=== PATIENT | female | born 1995 | race Caucasian/White ===

== ENCOUNTER 2023-06-22 20:55 | Outpatient (REF) | payer BC, SELFPAY ==
[2023-06-30 09:07] LABS: Age Gdln ACOG Testing Note (.); IGP, rfx Aptima HPV ASCU Note (.)
== END 2023-06-22 20:56 | disposition home or self-care (01) ==
LOC: LAB 20:55
PROVIDERS: PCP Nurse Practitioner Family; Visit Provider Physician Assistant
DX: Z12.4 Encounter for screening for malignant neoplasm of cervix (principal)
CPT/HCPCS: G0145

== ENCOUNTER 2024-04-29 12:53 | Outpatient (OUT) | payer BC, SELFPAY ==
--- NOTE | 2024-04-29 13:00 | CA_ITS ---
Patient Name: CECILE ROBLES MR#: [id number] : 1995 Exam Date: 04/29/2024 Ordering Doctor: DR CHRISTI EASTMAN M.D. ECHOCARDIOGRAM REPORT PROCEDURE: CA ECHO DOPPLER COMPLETE INDICATIONS: Edema, ventricular septal defect COMPARISON: None. DESCRIPTION: COMPLETE ECHOCARDIOGRAM Real-time transthoracic echocardiography with 2D, M-mode, spectral and color flow Doppler performed. QUALITY: Technical quality was good. LEFT VENTRICLE: Normal chamber size. Normal left ventricular wall thickness. Normal systolic function. Perimembranous ventricular septal defect (0.4 cm) with left to right shunting. There is inability to assess the peak velocity across the ventricular septal defect due to incomplete Doppler envelope. LV EF: Normal left ventricular ejection fraction, (60-65%). DIASTOLIC: Normal diastolic function. ATRIAL SEPTUM: LEFT ATRIUM: Normal chamber size. RIGHT ATRIUM: Normal chamber size. RIGHT VENTRICLE: Normal chamber size. Normal right ventricular systolic function. TRICUSPID VALVE: Normal mobility and thickness. No stenosis with no regurgitation. Unable to assess right-sided pressures due to lack of measurable tricuspid regurgitation. MITRAL VALVE: Normal mobility and thickness. No evidence of mitral valve stenosis. There is no mitral annular calcification. Trivial mitral regurgitation. AORTIC VALVE: Normal trileaflet appearance. No visible sclerosis. Normal leaflet mobility. No evidence of aortic valve stenosis. No aortic regurgitation. AORTIC ROOT: Normal diameter and appearance. PULMONIC VALVE: Normal thickness and mobility. No stenosis. Trivial regurgitation. PERICARDIUM: No evidence of pericardial effusion. IVC: Not well visualized. PLEURA: CONCLUSION: 1. Normal left ventricular size and systolic function. LVEF is estimated at 60 to 65%. 2. Normal right ventricular size and systolic function. 3. No significant valvular dysfunction. 4. Normal diastolic function. 5. A small restrictive perimembranous ventricular septal defect is seen with [id number] shunting across it. Unable to assess the peak velocity across the VSD due to incomplete Doppler envelope. 6. No pericardial effusion. Adult Echocardiography Procedure Report Left Ventricle LVEDD (3.7 - 5.6 cm): 4.26 cm LVESD (2.2 - 4.0 cm): 2.85 cm LVIVS thickness (0.6 - 1.2 cm): 0.85 cm LVPW thickness (0.5 - 1.0 cm): 1.04 cm e': 0.15 m/s E - e': 4.71 LVOT Max Gradient: 1.77 mm[Hg], 1.69 mm[Hg] Peak Velocity (LVOT): 0.67 m/s, 0.65 m/s LVOT Diameter 1.82 cm Left Atrium LA Volume Index (2D A2C): 21.88 ml/m2 Left Atrium Systolic Dimension: 2.51 cm Mitral Valve MV E to A Ratio: 1.22 Mitral Valve A-Wave Peak Velocity: 0.58 m/s Mitral Valve E-Wave Peak Velocity: 0.70 m/s Right Ventricle Aorta AO Root Diam: 2.73 cm Aortic Valve AoV Area (Peak Adama): 1.37 cm2, 1.37 cm2 AoV Area (VTI): 1.43 cm2, 1.43 cm2 Peak Velocity(Antegrade Flow): 1.27 m/s Peak Gradient(Antegrade Flow): 6.41 mm[Hg] Mean Velocity(Antegrade Flow): 0.89 m/s Mean Gradient(Antegrade Flow): 3.55 mm[Hg] Velocity Time Integral: 25.48 cm Tricuspid Valve Pulmonic Valve Mean Gradient: 3.72 mm[Hg] Mean Velocity: 0.87 m/s Peak Velocity: 1.45 m/s, 1.06 m/s Peak Gradient: 4.51 mm[Hg], 8.41 mm[Hg] Right Atrium Right Atrium Systolic Pressure: 25.02 ml, 25.02 ml Dictated by: Dominic Levy M.D. on 04/29/2024 at 20:23 Approved by: Dominic Levy M.D. on 04/29/2024 at 20:30
== END 2024-04-29 12:54 | disposition home or self-care (01) ==
LOC: CARD 12:53
PROVIDERS: Visit Provider Internal Medicine Interventional Cardiology
DX: R60.9 Edema, unspecified (principal); R68.89 Other general symptoms and signs
CPT/HCPCS: 93306

== ENCOUNTER 2024-10-17 21:15 | Outpatient (REF) | payer BC, SELFPAY ==
--- OUTSIDE RECORDS SUMMARY | 2024-10-17 21:18 | XMS_ITS | CCD ---
Author Organization [facility] CliniSyne Care Team Providers Care As400 Operator Name Role Phone PHYSICIAN, DEFAULT Unavailable Unavailable PHYSICIAN, DEFAULT Unavailable Unavailable NANCY WILLSON Unavailable Unavailable ELTAHAWY, EHAB A Unavailable Unavailable ELTAHAWY, EHAB A Unavailable Unavailable NAVRATIL, ANDREW Unavailable Unavailable NAVRATIL, ANDREW Unavailable Unavailable Linda Costellofer Unavailable Kapamerico Brittani Unavailable Linda Costellofer Unavailable RADHA Costello Primary Care Provider Kapamerico, RADHA Peter Attending Provider Trang, RADHA Peter Primary Care Provider Trang, RADHA Peter Attending Provider MELQUIADESC, DR COOMBS Primary Care Unavailable NAPOLEON, YOLIS Admitting Unavailable NAPOLEON, YOLIS Attending Unavailable BRITTANI COSTELLO Primary Care Unavailable ELTAHAWDmitri, DR BARRAZA Admitting Unavailable ELTAHAWDmitri, DR BARRAZA Consulting Unavailable ELTAMAKAYLA, DR BARRAZA Attending Unavailable PEGGY ., DR GALEANA Attending Unavailable MISC, DR COOMBS Primary Care Unavailable PEGGY ., DR GALEANA Admitting Unavailable PEGGY ., DR GALEANA Consulting Unavailable Brittani Costello Primary Care Unavailable Brittani Costello Attending Unavailable Kapamerico Brittani Admitting Unavailable KapLinda driscollfer Attending Unavailable [place] Brittani Admitting Unavailable KapBrittani driscoll Primary Care Unavailable ELTAHAWY, SHIVAMAB Attending Unavailable AUREA JOHNSON, EL GRAVES Attending Isidro VILLAR MD, EL GRAVES Primary Care Isidro VILLAR MD, EL GRAVES Primary Care MELVI Broussard MD Attending Edith VILLAR MD, EL GRAVES Referring Isidro VILLAR MD, EL GRAVES Primary Care EL Lindsay Attending Rolf VILLAR, EL GRAVES Referring Unavaila EL Otoole Primary Care Unavaila ble MELVI BRUNNER Attending MELVI Chester Referring Unavailable EL VILLAR Primary Care Unavaila rickey BRUNNER, MELVI Attending Unavailable MELVI BRUNNER Referring Unavailable EL VILLAR Primary Care Unavaila EL Otoole Primary Care Unavaila ble EL VILLAR Primary Care Unavaila rickey Walker MD, Allie Shane Primary Care Provider [phone] Allergies Allergy Classification Reported Allergen(s) Allergy Type Date of Onset Reaction(s) Facility (5 sources) azithromycin; Translations: [AZITHROMYCIN] Drug Allergy 9 Hives [facility] Repository (18 sources) Azithromycin Drug Allergy 4 hives, Other, Unknown [facility] (2 sources) Azithromycin Drug Allergy 9 [facility] Repository (1 source) Nitrofurantoin Drug Allergy [facility] Repository (1 source) Azithromycin Drug Allergy 1 [facility] Repository Medications Current Medications Medication Drug Class(es) Dates Sig (Normalized) Sig (Original) [id number] 200 actuat albuterol 0.09 mg/actuat metered dose inhaler (12 sources) beta2-Adrenergic Agonist Start: 11-25-2021 take 2 puff(s) by inhalation every four hours as needed for cough ProAir HFA 108 (90 Base) MCG/ACT 2 puffs as needed Inhalation every 4 hrs prn cough/wheezing/sh ortness of breath for 30 days Oct, Active take 1 puff(s) by in halation every four hours as needed Ventolin HFA 108 (90 Base) MCG/ACT 1 puf f as needed Inhalation every 4 hrs for 90 days prn Active ethinyl estradiol 0.035 mg / norgestimate 0.25 mg oral tablet (16 sources) Progestin, Estrogen Start: 07-22-2024 take 1 tablet by mouth once daily Sprintec 28 0.25-35 MG-MCG tablet Indications: control counseling TAKE 1 TABLET BY MOUTH DAILY 84 tablet 3 07/22/2024 Active take 1 tablet by gurpreet th every twenty-four hours Ginger 0.25-35 MG-MCG 1 tablet Orally Once a day Active take 1 tablet by gurpreet th every twenty-four hours VyLibra 0.25-35 MG-MCG 1 tablet Orally Once a day Active 30 actuat fluticasone furoate 0.2 mg/actuat / vilanterol 0.025 mg/actuat dry powder inhaler (6 sources) Corticosteroid, beta2-Adrenergic Agonist Start: 12-10-2020 take 1 puff(s) by inhalation once daily Breo Ellipta 200-25 MCG/INH 1 puff Inhalation Once a day for 30 days Nov, Active loratadine 10 mg oral tablet (15 sources) take 1 tablet by mouth once daily Loratadine 10 MG 1 tablet Orally Once a day Active montelukast 10 mg oral tablet (15 sources) Leukotriene Receptor Antagonist take 1 tablet by mouth every twenty-four hours Singulair 10 MG 1 tablet Orally Once a day for 90 days Active Multiple Vitamin (multivitamin) tablet (2 sources) take 1 tablet by mouth once daily Multiple Vitamin (multivitamin) tablet Take 1 tablet by mouth Daily Active Multivitamin preparation (15 sources) Multivitamin Active permethrin 50 mg/ml topical cream (6 sources) Pyrethroid Start: 09-04-2021 Permethrin 5 % 1 application; Apply from neck down to soles of feet, wash off after 8-14 hours Externally Once for 1 days Aug, Active ProAir HFA 108 (90 Base) MCG/ACT (3 sources) Start: 11-25-2021 take 2 puff(s) by inhalation every four hours as needed for cough ProAir HFA 108 (90 Base) MCG/ACT 2 puffs as needed Inhalation every 4 hrs prn cough/wheezing/sh ortness of breath for 30 days Oct, Active Zinc Sulfate (2 sources) Zinc Sulfate (ZINC 15 PO) Take by mouth Active Completed/Discontinued Medications Medication Drug Class(es) Dates Sig (Normalized) Sig (Original) 120 actuat budesonide 0.08 mg/actuat / formoterol fumarate 0.0045 mg/actuat metered dose inhaler (9 sources) Corticosteroid, beta2-Adrenergic Agonist Start: 12-12-2021 take 2 puff(s) by inhalation twice daily Budesonide-Formot donald Fumarate 80-4.5 MCG/ACT 2 puffs Inhalation Twice a day for 30 days Nov, Not-Taking Start: 11-26-2021 take 2 puff(s) by in halation once daily Symbicort 80-4.5 MCG/ACT 2 puffs Inhalation Once a day for 30 days Nov, Active Problems Active Problems Problem Classification Problem Date Documented Date Episodic/Chronic Asthma (20 sources) Unspecified asthma, uncomplicated; Translations: [Uncomplicated moderate persistent asthma] Onset: 04-20-2018 Resolved: 06-16-2022 Chronic Cardiac and circulatory congenital anomalies (20 sources) Ventricular septal defect; Translations: [Ventricular septal defect] Onset: 04-20-2018 Resolved: 06-16-2022 Chronic Contraceptive and procreative management (4 sources) Patient encounter status; Translations: [Encounter for other general counseling and advice on contraception] Onset: 10-17-2024 10-17-2024 Episodic Other diseases of veins and lymphatics (4 sources) Lymphedema, not elsewhere classified; Translations: [Lymphedema, not elsewhere classified] Onset: 05-23-2024 Chronic Other lower respiratory disease (1 source) Dyspnea, unspecified; Translations: [DYSPNEA, UNSPECIFIED] Onset: 04-20-2018 Episodic Other screening for suspected conditions (not mental disorders or infectious disease) (18 sources) Elevated C-reactive protein; Translations: [Elevated C-reactive protein (CRP)] Onset: 12-16-2021 Resolved: 06-16-2022 Episodic Unclassified (2 sources) Unknown / UNK(Unknown) Onset: 04-20-2018 Unclassified (1 source) Encounter for general adult medical examination without abnormal findings; Translations: [Encounter for general adult medical examination without abnormal findings] Onset: 06-22-2023 Unclassified (2 sources) Encounter for general adult medical examination without abnormal findings Onset: 02-12-2024 Unclassified (1 source) Streptococcal pharyngitis Onset: 04-27-2024 Unclassified (2 sources) Contact with and (suspected) exposure to covid-19; Translations: [Contact with and (suspected) exposure to covid-19] Onset: 04-27-2024 Past or Other Problems Problem Classification Problem Date Documented Date Episodic/Chronic E Codes: Natural/environment (1 source) Bitten or stung by nonvenomous insect and other nonvenomous arthropods, initial encounter Onset: 09-04-2021 Resolved: 09-04-2021 Episodic Immunizations and screening for infectious disease (1 source) Encounter for screening for human papillomavirus (HPV); Translations: [ENC SCREENING HUMAN PAPILLOMAVIRUS] Onset: 06-17-2022 Episodic Other connective tissue disease (1 source) Other specified soft tissue disorders; Translations: [Swelling of right foot M79.89] Onset: 08-12-2021 Resolved: 08-12-2021 Episodic Other injuries and conditions due to external causes (2 sources) Unspecified injury of right foot, initial encounter Onset: 06-16-2022 Resolved: 06-24-2022 Episodic Other skin disorders (1 source) Rash and other nonspecific skin eruption Onset: 09-04-2021 Resolved: 09-04-2021 Episodic Other upper respiratory infections (1 source) Streptococcal pharyngitis; Translations: [Streptococcal pharyngitis] Onset: 04-27-2024 Episodic Residual codes; unclassified (4 sources) Localized edema; Translations: [Localized edema] Onset: 02-12-2024 Episodic Residual codes; unclassified (2 sources) Localized edema Onset: 02-12-2024 Episodic Viral infection (2 sources) Plantar wart; Translations: [Plantar wart] Onset: 02-12-2024 Episodic Results Test Name Value Interpretation Reference Range Facility VL LOWER EXTREM VENOUS DUPLE X BILATon 07-11-2024 VL LOWER EXTREM VENOUS DUPLEX BILAT VL LOWER EXTREM VENOUS DUPLEX BILAT [facility] [address] [place] [address] Lower Extremity Venous Duplex Report Name: JOE FLORES : 1995 Age: 29 yrs EPI: [id number] Gender: Female Accession Number: [id number] Order Number: [id number] Patient Location: [facility] Study Date: 07/11/2024 02:22 PM Procedure: 53439 Bilateral lower extremity venous study. Study was performed as an outpatient. Indication: Bilateral lower extremity edema [R60.0 (ICD-10-CM)]; Chronic acquired lymphedema [I89.0 (ICD-10-CM)]. Quality: Adequate. Study Description: Veins of the bilateral lower extremity were evaluated including the common femoral, femoral, deep femoral, popliteal, tibial, peroneals, and saphenous veins. Right Lower Extremity Venous Findings: There is no evidence of acute deep or superficial venous thrombosis identified in the right lower extremity. Left Lower Extremity Venous Findings: There is no evidence of acute deep or superficial venous thrombosis identified in the left lower extremity. Patient Disposition: The patient was discharged. Impression: o Normal venous evaluation, no evidence of acute superficial or deep venous thrombosis in the bilateral lower extremities. Ordering Physician: MELVI BRUNNER Referring Physician: MELVI BRUNNER Performed By: ARNEL Mabry, Sohan This document is confidential medical information. Unauthorized disclosure or use of this information is prohibited by law. If you are not the intended recipient of this document,please advise us by calling immediately . [facility] CT ABDOMEN PELVIS W CONTRAST on 07-08-2024 CT ABDOMEN PELVIS W CONTRAST CT ABDOMEN PELVIS W CONTRAST [phone] HISTORY: lower ext. swelling, R>>L lower ext. swelling, R>>L, Bilateral lower extremity edema, Chronic acquired lymphedema Localized edema;Lymphedema, not elsewhere classified COMPARISON: None TECHNIQUE: Post IV contrast multiplanar CT images of the abdomen and pelvis NOTE: If there are questions about the content of this report, please contact [facility] radiology by calling [phone] FINDINGS: LOWER CHEST: Unremarkable LIVER: Unremarkable GALLBLADDER/BILE DUCTS: Unremarkable. No opaque gallstones PANCREAS: Unremarkable. No mass or duct dilation SPLEEN: Unremarkable ADRENALS: Unremarkable KIDNEYS/URETERS: Unremarkable. No hydronephrosis, stone, or suspicious mass GI TRACT: Unremarkable. No obstruction, wall thickening, or pneumatosis. Normal appendix VESSELS: Unremarkable. No aneurysm or dissection LYMPH NODES: Unremarkable. No enlarged lymph nodes ABD WALL: Unremarkable PELVIS: Unremarkable BONES: Unremarkable OTHER: None IMPRESSION: Unremarkable abdomen/pelvis CT. SIGNED BY: Oscar Andrade MD on 07/08/2024 11:56 AM 157.5 68.04 [facility] Imaging Report - Main Call Center - [facility] Call Center: Normal [facility] Telemedicineon 03-22-2024 Telemedicine [id number] Baljeet Flores holley Pérez 1995 F Date Provider Department Center 03/22/2024 271-LAVELL JAMES [facility] No family history on file Level of Service:95510 NM OFFICE/OUTPATIENT ESTABLISHED MOD MDM 30 MIN Normal [facility] HEMOGLOBIN A1Con 02-13-2024 Glucose [Mass/Vol] 94 mg/dL Normal [facility] Comment on above: Result Comment: (NOT E) REFERENCE RANGE: Normal: 4.0-5.6% Pre-diabetes: 5.7-6.4% Provisional diagnosis of diabetes: >6.4% Hgb F>10% and anything which shortens red cell survival, such as hemolytic anemia, or unstable hemoglobin variants such as HbSS, HbSC, or HbCC, will lower the HbA1c value associated with a given level of glycemic control. Performed By: #### H BA1C #### Adilene Cervantes ([id number]) [facility] [address] [place] [address] HbA1c (Bld) [Mass fraction] 4.9 % Normal 4.2-5.6 [facility] Comment on above: Performed By: #### H BA1C #### Adilene Cervantes ([id number]) [facility] [address] [place] [address] MICROALBUMIN/CREAT Feroz 02-12 CREATININE,URINE RANDOM 92.4 mg/dL Normal [facility] Comment on above: Performed By: #### U MAR #### Adilene Cervantes ([id number]) [facility] [address] [place] [address] MICROALB/CREAT RATIO See Comment Normal [facility] Comment on above: Result Comment: (NOT E) Because the albumin level is below the level of detection in this urine specimen, the laboratory is unable to calculate a reliable albumin/creatinine ratio. Microalbuminuria is unlikely if the urine albumin concentration is less than 20-30 mg/L in a random specimen. Performed By: #### U MAR #### Adilene Cervantes ([id number]) [facility] [address] [place] [address] MICROALBUMIN, UR <12.0 Normal [facility] Comment on above: Performed By: #### U MAR #### Adilene Cervantes ([id number]) [facility] [address] [place] [address] TSH REFLEX TO FT4on 02-13-20 TSH Qn 0.842 m[IU]/L Normal 0.270-4.20 0 [facility] Comment on above: Result Comment: (NOT E) Ingestion of javier doses of biotin (>5 mg/day) taken within 8 hours of drawing blood sample can interfere with this immunoassay test. Performed By: #### T SHR #### Adilene Cervantes ([id number]) [facility] [address] [place] [address] CBC W/O DIFFon 02-12-2024 Erythrocyte distribution width (RBC) [Ratio] 12.2 % Low 12.3-17.0 [facility] Comment on above: Performed By: #### C BC #### Adilene Cervantes ([id number]) [facility] [address] [place] [address] Hematocrit (Bld) [Volume fraction] 42.0 % Normal 36-46 [facility] Comment on above: Performed By: #### C BC #### Adilene Cervantes ([id number]) [facility] [address] [place] [address] Hemoglobin (Bld) [Mass/Vol] 14.5 g/dL Normal 12.0-15.2 [facility] Comment on above: Performed By: #### C BC #### Adilene Cervantes ([id number]) [facility] [address] [place] [address] MCH (RBC) [Entitic mass] 30.2 pg Normal 27-33 [facility] Comment on above: Performed By: #### C BC #### Adilene Cervantes ([id number]) [facility] [address] [place] [address] MCHC (RBC) [Mass/Vol] 34.4 g/dL Normal 32-36 [facility] Comment on above: Performed By: #### C BC #### Adilene Cervantes ([id number]) [facility] [address] [place] [address] MCV (RBC) [Entitic vol] 87.9 fL Normal 82-97 [facility] Comment on above: Performed By: #### C BC #### Adilene Cervantes ([id number]) [facility] [address] [place] [address] PLATELET 289 THOU/mcL Normal 140-375 [facility] Comment on above: Performed By: #### C BC #### Adilene Cervantes ([id number]) [facility] [address] [place] [address] Platelet mean volume (Bld) [Entitic vol] 8.2 fL Normal 7.4-11.5 [facility] Comment on above: Performed By: #### C BC #### Adilene Cervantes ([id number]) [facility] [address] [place] [address] RBC 4.78 MIL/mcL Normal 3.80-5.20 [facility] Comment on above: Performed By: #### C BC #### Adilene Cervantes ([id number]) [facility] [address] [place] [address] WBC 7.8 THOU/mcL Normal 3.6-10.5 [facility] Comment on above: Performed By: #### C BC #### Adilene Cervantes ([id number]) [facility] [address] [place] [address] LIPID PANELon 02-12-2024 Cholesterol [Mass/Vol] 191 mg/dL Normal <200 [facility] Comment on above: Performed By: #### L IPID #### Adilene Cervantes ([id number]) [facility] [address] [place] [address] Cholesterol in HDL [Mass/Vol] 64 mg/dL Normal >50 [facility] Comment on above: Performed By: #### L IPID #### Adilene Cervantes ([id number]) [facility] [address] [place] [address] Cholesterol in LDL [Mass/Vol] 81 mg/dL Normal <130 [facility] Comment on above: Result Comment: Inte rpretive Guidelines: <100 Optimal 100-129 Near Optimal 130-159 Borderline High >159 High Performed By: #### L IPID #### Adilene Cervantes ([id number]) [facility] [address] [place] [address] NON-HDL CHOLESTEROL 127 mg/dL Normal <130 [facility] Comment on above: Result Comment: Test ed at [facility] [address] [facility] [address] Performed By: #### L IPID #### Adilene Cervantes ([id number]) [facility] [address] [place] [address] Triglyceride [Mass/Vol] 228 mg/dL High <150 [facility] Comment on above: Result Comment: Refe rence Interval: Fasting <150 mg/dL Non-Fasting <175 mg/dL Performed By: #### L IPID #### Adilene Cervantes ([id number]) [facility] [address] [place] [address] METABOLIC PANEL, COMPREHENSI VEon 02-12-2024 Albumin [Mass/Vol] 4.6 g/dL Normal 3.5-5.7 [facility] Comment on above: Performed By: #### C MPC #### Adilene Cervantes ([id number]) [facility] [address] [place] [address] ALP [Catalytic activity/Vol] 66 U/L Normal 35-135 [facility] Comment on above: Performed By: #### C MPC #### Adilene Cervantes ([id number]) [facility] [address] [place] [address] ALT [Catalytic activity/Vol] 23 U/L Normal 10-60 [facility] Comment on above: Performed By: #### C MPC #### Adilene Cervantes ([id number]) [facility] [address] [place] [address] Anion gap [Moles/Vol] 8 mmol/L Normal 4-16 [facility] Comment on above: Result Comment: Test ed at [facility] [address] [facility] [address] Performed By: #### C MPC #### Adilene Cervantes ([id number]) [facility] [address] [place] [address] AST [Catalytic activity/Vol] 18 U/L Normal 10-40 [facility] Comment on above: Performed By: #### C MPC #### Adilene Cervantes ([id number]) [facility] [address] [place] [address] Bilirubin [Mass/Vol] 0.3 mg/dL Normal 0.0-1.2 [facility] Comment on above: Performed By: #### C MPC #### Adilene Cervantes ([id number]) [facility] [address] [place] [address] Calcium [Mass/Vol] 9.7 mg/dL Normal 8.5-10.4 [facility] Comment on above: Performed By: #### C MPC #### Adilene Cervantes ([id number]) [facility] [address] [place] [address] Chloride [Moles/Vol] 105 mmol/L Normal 98-111 [facility] Comment on above: Performed By: #### C MPC #### Adilene Cervantes ([id number]) [facility] [address] [place] [address] CO2 [Moles/Vol] 28 mmol/L Normal 21-31 [facility] Comment on above: Performed By: #### C MPC #### Adilene Cervantes ([id number]) [facility] [address] [place] [address] Creatinine [Mass/Vol] 0.74 mg/dL Normal 0.60-1.20 [facility] Comment on above: Performed By: #### C MPC #### Adilene Cervantes ([id number]) [facility] [address] [place] [address] ESTIMATED GFR 113 mL/min/1.73 m2 Normal >59 [facility] Comment on above: Result Comment: Natalie mated GFR was calculated using the CKD-EPI cr (2020) equation refit without race. The equation is recommended by the National Kid[employer] - [place] [employer] Neph[employer] Task Force. Performed By: #### C MPC #### Adilene Cervantes ([id number]) [facility] [address] [place] [address] Glucose [Mass/Vol] 94 mg/dL Normal 70-99 [facility] Comment on above: Performed By: #### C MPC #### Adilene Cervantes ([id number]) [facility] [address] [place] [address] Potassium [Moles/Vol] 3.9 mmol/L Normal 3.6-5.1 [facility] Comment on above: Performed By: #### C MPC #### Adilene Cervantes ([id number]) [facility] [address] [place] [address] Protein [Mass/Vol] 7.1 g/dL Normal 6.0-8.0 [facility] Comment on above: Performed By: #### C MPC #### Adilene Cervantes ([id number]) [facility] [address] [place] [address] Sodium [Moles/Vol] 141 mmol/L Normal 135-145 [facility] Comment on above: Performed By: #### C MPC #### Adilene Cervantes ([id number]) [facility] [address] [place] [address] Urea nitrogen [Mass/Vol] 13 mg/dL Normal 8- [facility] Comment on above: Performed By: #### C MPC #### Adilene Cervantes ([id number]) [facility] [address] [place] [address] URINALYSIS, COMPLETEon 02-11 Appearance (U) TURBID Abnormal Clear [facility] Comment on above: Performed By: #### U A #### Adilene Cervantes ([id number]) [facility] [address] [place] [address] BACTERIA SEE NOTES Abnormal NONE [facility] Comment on above: Result Comment: FEW Performed By: #### U A #### Adilene Cervantes ([id number]) [facility] [address] [place] [address] BILIRUBIN,URINE Negative Normal NEGATIVE [facility] Comment on above: Performed By: #### U A #### Adilene Cervantes ([id number]) [facility] [address] [place] [address] BLOOD, URINE 1+ (0.06-0.1 mg/dL) Abnormal NEGATIVE [facility] Comment on above: Performed By: #### U A #### Adilene Cervantes ([id number]) [facility] [address] [place] [address] Color (U) LIGHT BROWN Abnormal Yellow [facility] Comment on above: Performed By: #### U A #### Adilene Cervantes ([id number]) [facility] [address] [place] [address] Glucose Ql (U) Negative Normal NEGATIVE [facility] Comment on above: Performed By: #### U A #### Adilene Cervantes ([id number]) [facility] [address] [place] [address] Ketones Ql (U) Negative Normal NEGATIVE [facility] Comment on above: Performed By: #### U A #### Adilene Cervantes ([id number]) [facility] [address] [place] [address] Leukocyte esterase Test strip Ql (U) Negative Normal NEGATIVE [facility] Comment on above: Performed By: #### U A #### Adilene Cervantes ([id number]) [facility] [address] [place] [address] Nitrite Ql (U) Negative Normal NEGATIVE [facility] Comment on above: Performed By: #### U A #### Adilene Cervantes ([id number]) [facility] [address] [place] [address] pH (U) 7.0 [pH] Normal 5.0-8.0 [facility] Comment on above: Performed By: #### U A #### Adilene Cervantes ([id number]) [facility] [address] [place] [address] PROTEIN URIN Trace (10-20 mg/dL) Abnormal NEGATIVE [facility] Comment on above: Performed By: #### U A #### Adilene Cervantes ([id number]) [facility] [address] [place] [address] RBC (U) [#/Vol] /uL Normal <6 [facility] Comment on above: Result Comment: 0 to 2 Performed By: #### U A #### Adilene Cervantes ([id number]) [facility] [address] [place] [address] SPEC.GRAVITY,URINE 1.021 Normal 1.005-1.0 2 9 [facility] Comment on above: Performed By: #### U A #### Adilene Cervantes ([id number]) [facility] [address] [place] [address] UROBILINOGEN NORMAL Normal NORMAL [facility] Comment on above: Performed By: #### U A #### Adilene Cervantes ([id number]) [facility] [address] [place] [address] WBC 11 to 20 Abnormal <6 [facility] Comment on above: Performed By: #### U A #### Adilene Cervantes ([id number]) [facility] [address] [place] [address] WBC CLUMPS PRESENT Normal [facility] Comment on above: Performed By: #### U A #### Adilene Cervantes ([id number]) [facility] [address] [place] [address] YEAST PRESENT Normal [facility] Comment on above: Result Comment: Test ed at [facility] [address] [facility] [address] Performed By: #### U A #### Adilene Cervantes ([id number]) [facility] [address] [place] [address] SPECIMEN SOURCE Urine, Clean Catch Normal T [facility] Comment on above: Performed By: #### U A #### Adilene Cervantes ([id number]) [facility] [address] [place] [address] URINE TYPE Urine Normal [facility] Comment on above: Performed By: #### U A #### Adilene Cervantes ([id number]) [facility] [address] [place] [address] CMP with reflex to A1Con Albumin [Mass/Vol] 4.5 g/dL Normal 3.5-5.[address] [facility] Comment on above: Order Comment: Reaso n for Exam Well adult exam Performed By: #### L IPID, TSH3, CBC, [id number], [id number], HSCRP, CMP wRFX A1C, FE PRO #### [facility] [address] [place] [id number] [place] Albumin/Globulin [Mass ratio] 1.7 {ratio} Normal [facility] Comment on above: Order Comment: Reaso n for Exam Well adult exam Performed By: #### L IPID, TSH3, CBC, [id number], [id number], HSCRP, CMP wRFX A1C, FE PRO #### [facility] [address] [place] [address] [place] ALP [Catalytic activity/Vol] 57 U/L Normal 34-104 [facility] Comment on above: Order Comment: Reaso n for Exam Well adult exam Performed By: #### L IPID, TSH3, CBC, [id number], [id number], HSCRP, CMP wRFX A1C, FE PRO #### [facility] [address] [place] [address] [facility] ALT [Catalytic activity/Vol] 24 U/L Normal 7-52 [facility] Comment on above: Order Comment: Reaso n for Exam Well adult exam Performed By: #### L IPID, TSH3, CBC, [id number], [id number], HSCRP, CMP wRFX A1C, FE PRO #### [facility] [address] [place] [id number] [facility] Anion gap [Moles/Vol] 9.8 mmol/L Normal 6.0-15.0 [facility] Comment on above: Order Comment: Reaso n for Exam Well adult exam Performed By: #### L IPID, TSH3, CBC, [id number], [id number], HSCRP, CMP wRFX A1C, FE PRO #### [facility] [address] [place] [id number] [place] AST [Catalytic activity/Vol] 20 U/L Normal 13-39 [facility] Comment on above: Order Comment: Reaso n for Exam Well adult exam Performed By: #### L IPID, TSH3, CBC, [id number], [id number], HSCRP, CMP wRFX A1C, FE PRO #### [facility] [address] [place] [address] [place] Bilirubin [Mass/Vol] 0.5 mg/dL Normal 0.3-1.0 [facility] Comment on above: Order Comment: Reaso n for Exam Well adult exam Performed By: #### L IPID, TSH3, CBC, [id number], [id number], HSCRP, CMP wRFX A1C, FE PRO #### [facility] [address] [place] [address] [facility] Calcium [Mass/Vol] 9.1 mg/dL Normal 8.6-10.[address] [facility] Comment on above: Order Comment: Reaso n for Exam Well adult exam Performed By: #### L IPID, TSH3, CBC, [id number], [id number], HSCRP, CMP wRFX A1C, FE PRO #### [facility] [address] Chloride [Moles/Vol] 106 mmol/L Normal 98-107 [facility] Comment on above: Order Comment: Reaso n for Exam Well adult exam Performed By: #### L IPID, TSH3, CBC, [id number], [id number], HSCRP, CMP wRFX A1C, FE PRO #### [facility] [address] CO2 [Moles/Vol] 28.0 mmol/L Normal 21.0-31.0 [facility] Comment on above: Order Comment: Reaso n for Exam Well adult exam Performed By: #### L IPID, TSH3, CBC, [id number], [id number], HSCRP, CMP wRFX A1C, FE PRO #### [facility] [address] [place] [address] Creatinine [Mass/Vol] 0.69 mg/dL Normal 0.60-1.20 [facility] Comment on above: Order Comment: Reaso n for Exam Well adult exam Performed By: #### L IPID, TSH3, CBC, [id number], [id number], HSCRP, CMP wRFX A1C, FE PRO #### [facility] [address] [place] [address] GFR/1.73 sq M.predicted MDRD (S/P/Bld) [Vol rate/Area] mL/min/{1.73_m2} [facility] Comment on above: Order Comment: Reaso n for Exam Well adult exam Performed By: #### L IPID, TSH3, CBC, [id number], [id number], HSCRP, CMP wRFX A1C, FE PRO #### [facility] [address] Globulin (S) [Mass/Vol] 2.6 g/dL [facility] Comment on above: Order Comment: Reaso n for Exam Well adult exam Performed By: #### L IPID, TSH3, CBC, [id number], [id number], HSCRP, CMP wRFX A1C, FE PRO #### [facility] [address] [place] [phone] [facility] Glucose [Mass/Vol] 88 mg/dL Normal 70-[address] [facility] Comment on above: Order Comment: Reaso n for Exam Well adult exam Performed By: #### L IPID, TSH3, CBC, [id number], [id number], HSCRP, CMP wRFX A1C, FE PRO #### [facility] [address] [place] [phone] [place] Potassium [Moles/Vol] 4.8 mmol/L Normal 3.5-5.1 [facility] Comment on above: Order Comment: Reaso n for Exam Well adult exam Result Comment: Hemo lysis is present at a level that could interfere with the result. Performed By: #### L IPID, TSH3, CBC, [id number], [id number], HSCRP, CMP wRFX A1C, FE PRO #### [facility] [address] [place] [phone] [place] Protein [Mass/Vol] 7.1 g/dL Normal 6.4-8.[address] [facility] Comment on above: Order Comment: Reaso n for Exam Well adult exam Performed By: #### L IPID, TSH3, CBC, [id number], [id number], HSCRP, CMP wRFX A1C, FE PRO #### [facility] [address] [place] [address] [place] Sodium [Moles/Vol] 139 mmol/L Normal 136-[address] [facility] Comment on above: Order Comment: Reaso n for Exam Well adult exam Performed By: #### L IPID, TSH3, CBC, [id number], [id number], HSCRP, CMP wRFX A1C, FE PRO #### [facility] [address] [place] [address] [place] Urea nitrogen [Mass/Vol] 15 mg/dL Normal 7-25 [facility] Comment on above: Order Comment: Reaso n for Exam Well adult exam Performed By: #### L IPID, TSH3, CBC, [id number], [id number], HSCRP, CMP wRFX A1C, FE PRO #### [facility] [address] [place] [address] Complete Blood Count Auto Di ffon 06-22-2023 Basophils (Bld) [#/Vol] 0.1 10*3/uL Normal 0.0-0.2 [facility] Comment on above: Order Comment: Reaso n for Exam Well adult exam Result Comment: PERF ORMED BY: [place] [address] PATHOLOGIST SOIL FIELD TECHNICIAN THERESE MEHTA M.D. Performed By: #### L IPID, TSH3, CBC, [id number], [id number], HSCRP, CMP wRFX A1C, FE PRO #### [address] Basophils/100 WBC (Bld) 0.8 % Normal . [facility] Comment on above: Order Comment: Reaso n for Exam Well adult exam Performed By: #### L IPID, TSH3, CBC, [id number], [id number], HSCRP, CMP wRFX A1C, FE PRO #### [facility] [address] [place] [address] Eosinophils (Bld) [#/Vol] 0.3 10*3/uL Normal 0.0-0.45 [facility] Comment on above: Order Comment: Reaso n for Exam Well adult exam Performed By: #### L IPID, TSH3, CBC, [id number], [id number], HSCRP, CMP wRFX A1C, FE PRO #### [facility] [address] [place] [address] [place] Eosinophils/100 WBC (Bld) 3.4 % Normal . [facility] Comment on above: Order Comment: Reaso n for Exam Well adult exam Performed By: #### L IPID, TSH3, CBC, [id number], [id number], HSCRP, CMP wRFX A1C, FE PRO #### [address] Erythrocyte distribution width (RBC) [Ratio] 11.8 % Low 11.9-15.3 [facility] Comment on above: Order Comment: Reaso n for Exam Well adult exam Performed By: #### L IPID, TSH3, CBC, [id number], [id number], HSCRP, CMP wRFX A1C, FE PRO #### [address] Hematocrit (Bld) [Volume fraction] 41.2 % Normal 34.0-46.4 [facility] Comment on above: Order Comment: Reaso n for Exam Well adult exam Performed By: #### L IPID, TSH3, CBC, [id number], [id number], HSCRP, CMP wRFX A1C, FE PRO #### [address] Hemoglobin (Bld) [Mass/Vol] 14.0 g/dL Normal 11.8-15.4 [facility] Comment on above: Order Comment: Reaso n for Exam Well adult exam Performed By: #### L IPID, TSH3, CBC, [id number], [id number], HSCRP, CMP wRFX A1C, FE PRO #### [address] Lymphocytes (Bld) [#/Vol] 2.0 10*3/uL Normal 1.00-4.8 [facility] Comment on above: Order Comment: Reaso n for Exam Well adult exam Performed By: #### L IPID, TSH3, CBC, [id number], [id number], HSCRP, CMP wRFX A1C, FE PRO #### [place] [address] [place] Lymphocytes/100 WBC (Bld) 23.9 % Normal . [facility] Comment on above: Order Comment: Reaso n for Exam Well adult exam Performed By: #### L IPID, TSH3, CBC, [id number], [id number], HSCRP, CMP wRFX A1C, FE PRO #### [address] MCH (RBC) [Entitic mass] 31.0 pg Normal 24.7-34.3 [facility] Comment on above: Order Comment: Reaso n for Exam Well adult exam Performed By: #### L IPID, TSH3, CBC, [id number], [id number], HSCRP, CMP wRFX A1C, FE PRO #### [facility] [address] [place] [address] MCV (RBC) [Entitic vol] 91.0 fL Normal 80-100 [facility] Comment on above: Order Comment: Reaso n for Exam Well adult exam Performed By: #### L IPID, TSH3, CBC, [id number], [id number], HSCRP, CMP wRFX A1C, FE PRO #### [address] Mean Corpuscular HGB Conc 34.0 g/dL Normal 32.0-35.0 [facility] Comment on above: Order Comment: Reaso n for Exam Well adult exam Performed By: #### L IPID, TSH3, CBC, [id number], [id number], HSCRP, CMP wRFX A1C, FE PRO #### [address] Monocytes (Bld) [#/Vol] 0.5 10*3/uL Normal 0.0-0.8 [facility] Comment on above: Order Comment: Reaso n for Exam Well adult exam Performed By: #### L IPID, TSH3, CBC, [id number], [id number], HSCRP, CMP wRFX A1C, FE PRO #### [address] Monocytes/100 WBC (Bld) 6.4 % Normal . [facility] Comment on above: Order Comment: Reaso n for Exam Well adult exam Performed By: #### L IPID, TSH3, CBC, [id number], [id number], HSCRP, CMP wRFX A1C, FE PRO #### [address] [address] [place] Neutrophils (Bld) [#/Vol] 5.4 10*3/uL Normal 1.8-7.7 [facility] Comment on above: Order Comment: Reaso n for Exam Well adult exam Performed By: #### L IPID, TSH3, CBC, [id number], [id number], HSCRP, CMP wRFX A1C, FE PRO #### [facility] [address] [place] [address] [place] Neutrophils/100 WBC (Bld) 65.5 % Normal . [facility] Comment on above: Order Comment: Reaso n for Exam Well adult exam Performed By: #### L IPID, TSH3, CBC, [id number], [id number], HSCRP, CMP wRFX A1C, FE PRO #### [facility] [address] [place] [address] [place] NRBC% 0.1 /100{WBC} Normal 0-0.5 [facility] Comment on above: Order Comment: Reaso n for Exam Well adult exam Performed By: #### L IPID, TSH3, CBC, [id number], [id number], HSCRP, CMP wRFX A1C, FE PRO #### [facility] [address] [place] [address] [place] Platelet mean volume (Bld) [Entitic vol] 8.5 fL Normal 6.3-10.7 [facility] Comment on above: Order Comment: Reaso n for Exam Well adult exam Performed By: #### L IPID, TSH3, CBC, [id number], [id number], HSCRP, CMP wRFX A1C, FE PRO #### [facility] [address] [place] [address] [place] Platelets (Bld) [#/Vol] 277 10*3/uL Normal 150-450 [facility] Comment on above: Order Comment: Reaso n for Exam Well adult exam Performed By: #### L IPID, TSH3, CBC, [id number], [id number], HSCRP, CMP wRFX A1C, FE PRO #### [facility] [address] [place] [address] [place] RBC (Bld) [#/Vol] 4.52 10*6/uL Normal 3.60-5.00 [facility] Comment on above: Order Comment: Reaso n for Exam Well adult exam Performed By: #### L IPID, TSH3, CBC, [id number], [id number], HSCRP, CMP wRFX A1C, FE PRO #### [address] WBC (Bld) [#/Vol] 8.2 10*3/uL Normal 3.8-11.[address] [facility] Comment on above: Order Comment: Reaso n for Exam Well adult exam Performed By: #### L IPID, TSH3, CBC, [id number], [id number], HSCRP, CMP wRFX A1C, FE PRO #### [address] FE PROon 06-22-2023 % Iron Saturation 34.3 % Normal 20-50 [facility] Comment on above: Order Comment: Reaso n for Exam Well adult exam Performed By: #### L IPID, TSH3, CBC, [id number], [id number], HSCRP, CMP wRFX A1C, FE PRO #### [address] Ferritin [Mass/Vol] 36.4 ng/mL Normal 11.0-306.8 [facility] Comment on above: Order Comment: Reaso n for Exam Well adult exam Performed By: #### L IPID, TSH3, CBC, [id number], [id number], HSCRP, CMP wRFX A1C, FE PRO #### [place] [id number] [facility] Iron [Mass/Vol] 125 ug/dL Normal 50-212 [facility] Comment on above: Order Comment: Reaso n for Exam Well adult exam Performed By: #### L IPID, TSH3, CBC, [id number], [id number], HSCRP, CMP wRFX A1C, FE PRO #### [address] Total Iron Binding Capacity 364 ug/dL Normal 255-450 [facility] Comment on above: Order Comment: Reaso n for Exam Well adult exam Performed By: #### L IPID, TSH3, CBC, [id number], [id number], HSCRP, CMP wRFX A1C, FE PRO #### [facility] [address] [place] [id number] [facility] Transferrin [Mass/Vol] 260 mg/dL Normal 203-362 [facility] Comment on above: Order Comment: Reaso n for Exam Well adult exam Performed By: #### L IPID, TSH3, CBC, [id number], [id number], HSCRP, CMP wRFX A1C, FE PRO #### [facility] [address] High Sensitive CRPon 023 High Sensitive CRP 7.0 mg/L High 0.0-0.[address] [facility] Comment on above: Order Comment: Reaso n for Exam Elevated C-reactive protein (CRP) Result Comment: Card iovascular Risk Classification (AHA/CDC) hsCRP < 1.0 mg/l low relative risk for CVD hsCRP 1.0-3.0 mg/l average relative risk for CVD hsCRP > 3.0 mg/l high relative risk for CVD hsCRP > 7.5 mg/l active inflammation* Two results two weeks apart and averaged provide a more stable estimate of hsCRP level. *hsCRP levels > 7.5 mg/l may suggest infection that can limit the use of this marker for estimation of CVD risk. PERFORMED BY: [place] [address] PATHOLOGIST SOIL FIELD TECHNICIAN THERESE MEHTA M.D. Performed By: #### L IPID, TSH3, CBC, [id number], [id number], HSCRP, CMP wRFX A1C, FE PRO #### [facility] [address] [place] [id number] [facility] Lipid Panelon 06-22-2023 Cholesterol [Mass/Vol] 162 mg/dL Normal 140-200 [facility] Comment on above: Order Comment: Reaso n for Exam Well adult exam Result Comment: Chol less than 200 mg/dl low risk Chol 201-239 mg/dl borderline risk Chol 240 mg/dl and greater high risk Performed By: #### L IPID, TSH3, CBC, [id number], [id number], HSCRP, CMP wRFX A1C, FE PRO #### [facility] [address] [place] [address] [place] Cholesterol in HDL [Mass/Vol] 64 mg/dL Normal 23-92 [facility] Comment on above: Order Comment: Reaso n for Exam Well adult exam Result Comment: HDL CHOL ATP-III CLASSIFICATION Cardiovascular Risk HDL > or equal to 60 mg/dL LOW HDL < 40 mg/dL HIGH Performed By: #### L IPID, TSH3, CBC, [id number], [id number], HSCRP, CMP wRFX A1C, FE PRO #### [facility] [address] [place] [address] [place] Cholesterol.total/C holesterol in HDL [Mass ratio] 2.5 {ratio} Normal <5.0 [facility] Comment on above: Order Comment: Reaso n for Exam Well adult exam Performed By: #### L IPID, TSH3, CBC, [id number], [id number], HSCRP, CMP wRFX A1C, FE PRO #### [facility] [address] [place] [address] [place] LDL Cholesterol,Calcula juaquin 61 mg/dL Normal 0-100 [facility] Comment on above: Order Comment: Reaso n for Exam Well adult exam Result Comment: LDL ATP III CLASSIFICATION LDL less than 100 mg/dL Optimal LDL 100-129 mg/dL Near or above optimal LDL 130-159 mg/dL Borderline high LDL 160-189 mg/dL High LDL greater than 189 mg/dL Very high Performed By: #### L IPID, TSH3, CBC, [id number], [id number], HSCRP, CMP wRFX A1C, FE PRO #### [facility] [address] [place] [id number] [place] Triglyceride w/Reflex 184 mg/dL High 0-149 [facility] Comment on above: Order Comment: Reaso n for Exam Well adult exam Result Comment: TRIG ATP III CLASSIFICATION TRIG less than 150 mg/dL Normal TRIG 150-199 mg/dL Borderline high TRIG 200-500 mg/dL High TRIG greater than 500 mg/dL Very high Standard traceable to the Center for Disease Conrtrol and Prevention (CDC) test method. Performed By: #### L IPID, TSH3, CBC, [id number], [id number], HSCRP, CMP wRFX A1C, FE PRO #### [facility] [address] VLDL CHOLESTEROL 36 mg/dL Normal [facility] Comment on above: Order Comment: Reaso n for Exam Well adult exam Performed By: #### L IPID, TSH3, CBC, [id number], [id number], HSCRP, CMP wRFX A1C, FE PRO #### [facility] [address] Thyroid Stimulating Hormoneo n 06-22-2023 TSH Qn 1.88 m[IU]/L Normal 0.45-5.33 [facility] Comment on above: Order Comment: Reaso n for Exam Well adult exam Performed By: #### L IPID, TSH3, CBC, [id number], [id number], HSCRP, CMP wRFX A1C, FE PRO #### [facility] [address] Vit. B12/Folate Profileon Cobalamin (Vitamin B12) [Mass/Vol] 316 pg/mL Normal 180-914 [facility] Comment on above: Order Comment: Reaso n for Exam Well adult exam Result Comment: Hemo lysis is present at a level that could interfere with the result. Performed By: #### L IPID, TSH3, CBC, [id number], [id number], HSCRP, CMP wRFX A1C, FE PRO #### [facility] [address] Folate 22.0 ng/mL Normal >5.9 [facility] Comment on above: Order Comment: Reaso n for Exam Well adult exam Result Comment: Hemo lysis is present at a level that could interfere with the result. Folate reference range: >5.9 ng/ml The WHO technical consultation on folate and vitamin b12 deficiencies has determined that folate concentrations less than 4 ng/ml are considered deficient. Performed By: #### L IPID, TSH3, CBC, [id number], [id number], HSCRP, CMP wRFX A1C, FE PRO #### [facility] [address] [place] [id number] [facility] Vitamin D 25 Hydroxy Totalon 06-22-2023 Vitamin D 25 Hydroxy Total 49.1 ng/mL Normal 30-100 [facility] Comment on above: Order Comment: Reaso n for Exam Well adult exam Result Comment: Hemo lysis is present at a level that could interfere with the result. VITAMIN D STATUS 25(OH)VITAMIN D RANGE (ng/mL) Deficient <20 Insufficient 20 to <30 Sufficient 30 to 100 Reference: Lizbet MF,Silvio NC, Tia REYNAGA, et al. Evaluation,treatment, and prevention of vitamin D deficiency; an Endocrine Society clinical practice guideline. JCEM. 2010; 96(7):1911-30. PERFORMED BY: [place] [address] PATHOLOGIST SOIL FIELD TECHNICIAN THERESE MEHTA M.D. Performed By: #### L IPID, TSH3, CBC, [id number], [id number], HSCRP, CMP wRFX A1C, FE PRO #### [facility] [address] [place] [id number] [facility] ECHOCARDIO M/2D COMPLETEon 0 01-07-2023 ECHOCARDIO M/2D COMPLETE Patient: JOE FLORES Exam Date: 01/07/2023 : 1995 Gender:F Ordering : DR LAVELL JAMES M.D. Admission #: [id number] Family : BRITTANI COSTELLO Order #: [id number] CLICK HERE TO VIEW EXAM ECHOCARDIOGRAM REPORT PROCEDURE: CARDIO PULMONARY ECHOCARDIO M/2D COMP INDICATIONS: Ventricular septal defect COMPARISON: None. DESCRIPTION: COMPLETE ECHOCARDIOGRAM Real-time transthoracic echocardiography with 2D, M-mode, spectral and color flow Doppler performed. QUALITY: Technical quality was good. LEFT VENTRICLE: Normal chamber size. Normal left ventricular wall thickness. Small perimembranous ventricular defect seen measuring 0.5 cm with elevated peak systolic velocities across it. The Doppler envelope is not complete enough to provide accurate measure of the gradient. LV EF: Normal left ventricular ejection fraction, (>55%). DIASTOLIC: Normal diastolic function. ATRIAL SEPTUM: LEFT ATRIUM: Normal chamber size. RIGHT ATRIUM: Normal chamber size. RIGHT VENTRICLE: Normal chamber size. Normal right ventricular systolic function. TRICUSPID VALVE: Normal mobility and thickness. No stenosis with no regurgitation. MITRAL VALVE: Normal mobility and thickness. No evidence of mitral valve stenosis. There is no mitral annular calcification. No mitral regurgitation. AORTIC VALVE: Normal trileaflet appearance. No visible sclerosis. Normal leaflet mobility. No evidence of aortic valve stenosis. No aortic regurgitation. AORTIC ROOT: Normal diameter and appearance. PULMONIC VALVE: Normal thickness and mobility. No stenosis. No regurgitation. PERICARDIUM: No evidence of pericardial effusion. IVC: Collapses with inspirations. PLEURA: CONCLUSION: 1. Normal ventricular size and function. 2. No valvular dysfunction. 3. A small perimembranous restrictive ventricular septal defect is seen. There appears to be elevated velocities and gradients across it however the Doppler envelope during this study was not complete enough to provide accurate measure of the gradient. Adult Echocardiography Procedure Report Left Ventricle LVEDD (3.7 - 5.6 cm): 4.59 cm LVESD (2.2 - 4.0 cm): 3.30 cm LVIVS thickness (0.6 - 1.2 cm): 0.73 cm LVPW thickness (0.5 - 1.0 cm): 0.63 cm e': 0.21 m/s E - e': 1.71 LVOT Max Gradient: 1.46 mm[Hg], 2.05 mm[Hg], 1.46 mm[Hg], 2.05 mm[Hg] Peak Velocity (LVOT): 0.60 m/s, 0.72 m/s, 0.60 m/s, 0.72 m/s Mean Velocity (LVOT): 0.45 m/s, 0.50 m/s, 0.45 m/s, 0.50 m/s LVOT Diameter 1.82 cm Left Ventricular Ejection Fraction: 54.38 %, 54.38 % Left Atrium LA Volume Index (2D A2C): 39.65 ml, 39.65 ml Left Atrium Systolic Dimension: 3.03 cm Mitral Valve MV E to A Ratio: 1.32, 0.00 Mitral Valve A-Wave Peak Velocity: 0.54 m/s, 0.76 m/s Mitral Valve E-Wave Peak Velocity: 0.72 m/s, 0.00 m/s Right Ventricle Aorta AO Root Diam: 2.70 cm Aortic Valve AoV Area (Peak Adama): 1.68 cm2, 1.53 cm2 Peak Velocity(Antegrade Flow): 1.02 m/s Peak Gradient(Antegrade Flow): 4.19 mm[Hg] Tricuspid Valve Peak Velocity: 0.48 m/s Pulmonic Valve Mean Gradient: 2.98 mm[Hg], 3.24 mm[Hg] Mean Velocity: 0.83 m/s, 0.82 m/s Peak Velocity: 1.12 m/s, 1.24 m/s Peak Gradient: 5.03 mm[Hg], 6.15 mm[Hg] Right Atrium Right Atrium Systolic Pressure: 27.75 ml, 27.75 ml Dictated by: Dominic Levy M.D. on 01/07/2023 at 20:23 Approved by: Dominic Levy M.D. on 01/07/2023 at 20:33 Normal [facility] C reactive protein [Mass/vol ume] in Serum or Plasma by High sensitivity methodOrdered By: Brittani Costello on 12-06-2022 CRP High sensitivity method [Mass/Vol] 8.8 mg/L [facility] Comment on above: Cardiovascular Risk Classification (AHA/CDC)hsCRP < 1.0 mg/l low relative risk for CVDhsCRP 1.0-3.0 mg/l average relative risk for CVDhsCRP > 3.0 mg/l high relative risk for CVDhsCRP > 7.5 mg/l active inflammation*Two results two weeks apart and averaged provide a morestable estimate of hsCRP level.*hsCRP levels > 7.5 mg/l may suggest infection that canlimit the use of this marker for estimation of CVD risk. High Sensitive CRPon 023 High Sensitive CRP 8.8 mg/L Normal [facility] Comment on above: Order Comment: Reaso n for Exam Elevated C-reactive protein (CRP) FASTING Result Comment: Card iovascular Risk Classification (AHA/CDC) hsCRP < 1.0 mg/l low relative risk for CVD hsCRP 1.0-3.0 mg/l average relative risk for CVD hsCRP > 3.0 mg/l high relative risk for CVD hsCRP > 7.5 mg/l active inflammation* Two results two weeks apart and averaged provide a more stable estimate of hsCRP level. *hsCRP levels > 7.5 mg/l may suggest infection that can limit the use of this marker for estimation of CVD risk. PERFORMED BY: [place] [address] PATHOLOGIST SOIL FIELD TECHNICIAN THERESE MEHTA M.D. Performed By: #### H SCRP #### [place] [id number] [facility] PAP ACOG PANEL 2: 22 to 30on 06-20-2022 . . [facility] Comment on above: Performed By: #### [id number] #### [facility] [address] [place] [address] Dr. Phu Foreman Age Gdln ACOG Testing - [facility] Comment on above: Performed By: #### [id number] #### [facility] [address] [address] [address] Phu Foreman DIAGNOSIS: Comment [facility] Comment on above: Result Comment: NEGA TIVE FOR INTRAEPITHELIAL LESION OR MALIGNANCY. Performed By: #### [id number] #### [facility] [address] [place] [address] Dr. Phu Foreman Methodology: Comment [facility] Comment on above: Result Comment: This liquid based ThinPrep(R) pap test was screened with the use of an image guided system. Performed By: #### [id number] #### [facility] [address] [address] [address] Phu Foreman Note: Comment [facility] Comment on above: Result Comment: The Pap smear is a screening test designed to aid in the detection of premalignant and malignant conditions of the uterine cervix. It is not a diagnostic procedure and should not be used as the sole means of detecting cervical cancer. Both false-positive and false-negative reports do occur. . Performed By: #### [id number] #### [facility] [address] [address] [address] Phu Foreman Performed by: Comment Normal [facility] Comment on above: Result Comment: Rafaela Cooper, Warehousing Technician (ASCP) Performed By: #### [id number] #### [facility] [address] [address] [address] Phu Foreman Reflex Criteria: Comment Normal [facility] Comment on above: Result Comment: The HPV DNA reflex criteria were not met with this specimen result therefore, no HPV testing was performed. . Performed By: #### [id number] #### [facility] [address] [address] [address] Phu Foreman Specimen adequacy: Comment Normal [facility] Comment on above: Result Comment: Sati sfactory for evaluation. Endocervical and/or squamous metaplastic cells (endocervical component) are present. Performed By: #### [id number] #### [facility] [address] [address] [address] Phu Foreman Basophils Auto (Bld) [#/Vol] Ordered By: Brittani Costello on 06-16-2022 Basophils (Bld) [#/Vol] 0.1 10*3/uL 0.0-0.2 [facility] Basophils/100 WBC Auto (Bld) Ordered By: Brittani Costello on 06-16-2022 Basophils/100 WBC (Bld) 0.8 % . [facility] Blood hemoglobin measurement (mass/volume)Ordered By: Brittani Costello on 06-16-2022 Hemoglobin (Bld) [Mass/Vol] 13.8 g/dL 11.8-15.4 [facility] Blood leukocytes automated c ount (number/volume)Ordered By: Brittani Costello on 06-16-2022 WBC (Bld) [#/Vol] 7.6 10*3/uL 4.5-11.[address] [facility] Body fluid albumin measureme nt (mass/volume)Ordered By: Brittani Costello on 06-16-2022 Albumin (Body fld) [Mass/Vol] 4.2 g/dL 3.2-5.5 [facility] C reactive protein [Mass/vol ume] in Serum or Plasma by High sensitivity methodOrdered By: Brittani Costello on 06-16-2022 CRP High sensitivity method [Mass/Vol] 4.1 mg/L [facility] Comment on above: Cardiovascular Risk Classification (AHA/CDC) hsCRP < 1.0 mg/l low relative risk for CVD hsCRP 1.0-3.0 mg/l average relative risk for CVD hsCRP > 3.0 mg/l high relative risk for CVD hsCRP > 7.5 mg/l active inflammation* Two results two weeks apart and averaged provide a more stable estimate of hsCRP level. *hsCRP levels > 7.5 mg/l may suggest infection that can limit the use of this marker for estimation of CVD risk. Cholesterol [Mass/volume] in Serum or PlasmaOrdered By: Brittani Costello on 06-16-2022 Cholesterol [Mass/Vol] 152 mg/dL 140-200 [facility] Comment on above: Chol less than 200 m g/dl low risk Chol 201-239 mg/dl borderline risk Chol 240 mg/dl and greater high risk Cholesterol in LDL Calc [Mas s/Vol]Ordered By: Brittani Costello on 06-16-2022 Cholesterol in LDL [Mass/Vol] 46 mg/dL 0-100 [facility] Comment on above: LDL ATP III CLASSIFI CATION LDL less than 100 mg/dL Optimal LDL 100-129 mg/dL Near or above optimal LDL 130-159 mg/dL Borderline high LDL 160-189 mg/dL High LDL greater than 189 mg/dL Very high Cholesterol in VLDL Calc [Ma ss/Vol]Ordered By: Brittani Costello on 06-16-2022 Cholesterol in VLDL [Mass/Vol] 34 mg/dL [facility] Creatinine and Glomerular fi ltration rate.predicted panel (S/P/Bld)Ordered By: Brittani Costello on 06-16-2022 Creatinine [Mass/Vol] 0.66 mg/dL 0.44-1.03 [facility] Eosinophils Auto (Bld) [#/Vo l]Ordered By: Brittani Costello on 06-16-2022 Eosinophils (Bld) [#/Vol] 0.2 10*3/uL 0.0-0.45 [facility] Eosinophils/100 WBC Auto (Bl d)Ordered By: Brittani Costello on 06-16-2022 Eosinophils/100 WBC (Bld) 3.2 % . [facility] Erythrocyte distribution wid th Auto (RBC) [Ratio]Ordered By: Brittani Costello on 06-16-2022 Erythrocyte distribution width (RBC) [Ratio] 12.0 % 11.9-15.3 [facility] Estimated glomerular filtrat ion rate (GFR) non- AmericanOrdered By: Brittani Costello on 06-16-2022 GFR/1.73 sq M.predicted among non-blacks MDRD (S/P/Bld) [Vol rate/Area] > 60 mL/Min [facility] Globulin Calc (S) [Mass/Vol] Ordered By: Brittani Costello on 06-16-2022 Globulin (S) [Mass/Vol] 2.5 g/dL [facility] Hematocrit Auto (Bld) [Volum e fraction]Ordered By: Brittani Costello on 06-16-2022 Hematocrit (Bld) [Volume fraction] 40.8 % 34.0-46.4 [facility] Laboratory - Hematology and Cell countsOrdered By: Brittani Costello on 06-16-2022 Nucleated RBC/100 WBC (Bld) [Ratio] 0.0 % 0-0.5 [facility] Lymphocytes Auto (Bld) [#/Vo l]Ordered By: Brittani Costello on 06-16-2022 Lymphocytes (Bld) [#/Vol] 2.1 10*3/uL 1.00-4.8 [facility] Lymphocytes/100 WBC Auto (Bl d)Ordered By: Brittani Costello on 06-16-2022 Lymphocytes/100 WBC (Bld) 28.1 % . [facility] MCH Auto (RBC) [Entitic mass ]Ordered By: Brittani Costello on 06-16-2022 MCH (RBC) [Entitic mass] 30.7 pg 24.7-34.3 [facility] MCHC Auto (RBC) [Mass/Vol]Or dered By: Brittani Costello on 06-16-2022 MCHC (RBC) [Mass/Vol] 33.8 g/dL 32.0-35.0 [facility] MCV Auto (RBC) [Entitic vol] Ordered By: Brittani Costello on 06-16-2022 MCV (RBC) [Entitic vol] 90.8 fL 80-100 [facility] Monocytes Auto (Bld) [#/Vol] Ordered By: Brittani Costello on 06-16-2022 Monocytes (Bld) [#/Vol] 0.4 10*3/uL 0.0-0.8 [facility] Monocytes/100 WBC Auto (Bld) Ordered By: Brittani Costello on 06-16-2022 Monocytes/100 WBC (Bld) 5.7 % . [facility] Neutrophils Auto (Bld) [#/Vo l]Ordered By: Brittani Costello on 06-16-2022 Neutrophils (Bld) [#/Vol] 4.7 10*3/uL 1.8-7.7 [facility] Neutrophils/100 WBC Auto (Bl d)Ordered By: Brittani Costello on 06-16-2022 Neutrophils/100 WBC (Bld) 62.2 % . [facility] No Panel InformationOrdered By: Brittani Costello on 06-16-2022 Estimated GFR () > 60 mL/Min [facility] Comment on above: GFR estimated refere nce range: According to KDOQI guidelines, <60 ml/min/1.73m2 is sufficient to diagnose a patient with chronic kidney disease. Pharmacy Creatinine Clearance (Chem N/A [facility] Platelet mean volume Auto (B ld) [Entitic vol]Ordered By: Brittani Costello on 06-16-2022 Platelet mean volume (Bld) [Entitic vol] 8.3 fL 6.3-10.7 [facility] Platelets Auto (Bld) [#/Vol] Ordered By: Brittani Costello on 06-16-2022 Platelets (Bld) [#/Vol] 296 10*3/uL 150-450 [facility] Protein [Mass/volume] in Ser um or PlasmaOrdered By: Brittani Costello on 06-16-2022 Protein [Mass/Vol] 6.7 g/dL 6.1-7.[address] [facility] RBC Auto (Bld) [#/Vol]Ordere d By: Brittani Costello on 06-16-2022 RBC (Bld) [#/Vol] 4.50 10*6/uL 3.60-5.00 [facility] Serum or plasma alanine mmis otransferase measurement without P-5'-P (enzymatic activiOrdered By: Brittani Costello on 06-16-2022 ALT No additional P-5'-P [Catalytic activity/Vol] 25 U/L 10-60 [facility] Serum or plasma albumin/glob ulin mass ratioOrdered By: Brittani Costello on 06-16-2022 Albumin/Globulin [Mass ratio] 1.7 {ratio} [facility] Serum or plasma alkaline nathen sphatase measurement (enzymatic activity/volume)Ordered By: Birttani Costello on 06-16-2022 ALP [Catalytic activity/Vol] 47 U/L 32-92 [facility] Serum or plasma aspartate am inotransferase measurement (enzymatic activity/volume)Ordered By: Brittani Costello on 06-16-2022 AST [Catalytic activity/Vol] 18 U/L 10-42 [facility] Serum or plasma calcium roxana urement (mass/volume)Ordered By: Brittani Costello on 06-16-2022 Calcium [Mass/Vol] 9.3 mg/dL 8.2-10.[address] [facility] Serum or plasma chloride gideon surement (moles/volume)Ordered By: Brittani Costello on 06-16-2022 Chloride [Moles/Vol] 102 mmol/L 95-114 [facility] Serum or plasma glucose roxana urement (mass/volume)Ordered By: Brittani Costello on 06-16-2022 Glucose [Mass/Vol] 89 mg/dL 70-[address] [facility] Comment on above: ADA recommended refe rence range Random Glucose Reference Range is dependent on time and content of last meal. Glucose of more than 200 mg/dL in a nonstressed, ambulatory subject supports the diagnosis of Diabetes Mellitus. Serum or plasma high density lipoprotein (HDL) cholesterol measurementOrdered By: Brittani Costello on 06-16-2022 Cholesterol in HDL [Mass/Vol] 72 mg/dL 35-85 [facility] Comment on above: HDL CHOL ATP-III CLA SSIFICATION Cardiovascular Risk HDL > or equal to 60 mg/dL LOW HDL < 40 mg/dL HIGH Serum or plasma potassium me asurement (moles/volume)Ordered By: Brittani Costello on 06-16-2022 Potassium [Moles/Vol] 4.2 mmol/L 3.5-5.1 [facility] Serum or plasma sodium measu rement (moles/volume)Ordered By: Brittani Costello on 06-16-2022 Sodium [Moles/Vol] 134 mmol/L 136-[address] [facility] Serum or plasma total biliru bin measurement (mass/volume)Ordered By: Brittani Costello on 06-16-2022 Bilirubin [Mass/Vol] 0.6 mg/dL 0.3-1.2 [facility] Serum or plasma total carbon dioxide measurement (moles/volume)Ordered By: Brittani Costello on 06-16-2022 CO2 [Moles/Vol] 24.4 mmol/L 22.0-30.0 [facility] Serum or plasma total choles terol/high density lipoprotein (HDL) cholesterol mass ratOrdered By: Brittani Costello on 06-16-2022 Cholesterol.total/C holesterol in HDL [Mass ratio] 2.1 {ratio} <5.0 [facility] Serum or plasma urea nitroge n measurement (mass/volume)Ordered By: Brittani Costello on 06-16-2022 Urea nitrogen [Mass/Vol] 11 mg/dL 9-23 [facility] TSH DL <= 0.005 mIU/L QnOrde red By: Brittani Costello on 06-16-2022 TSH Qn 2.27 m[IU]/L 0.45-5.33 [facility] Triglyceride [Mass/volume] i n Serum or PlasmaOrdered By: Brittani Costello on 06-16-2022 Triglyceride [Mass/Vol] 172 mg/dL 35-149 [facility] Comment on above: TRIG ATP III CLASSIF ICATION TRIG less than 150 mg/dL Normal TRIG 150-199 mg/dL Borderline high TRIG 200-500 mg/dL High TRIG greater than 500 mg/dL Very high Standard traceable to the Center for Disease Conrtrol and Prevention (CDC) test method. MICHELINE Antinuclear Antibodieson 08-12-2021 MICHELINE Antinuclear Antibodies Negative . [facility] Other Erythrocyte Sedimentation Ra helen 08-12-2021 ESR (Bld) [Velocity] 3 mm/h 0-19 [place] [facility] Other High Sensitive CRPon 021 High Sensitive CRP 6.5 [place] [facility] Other Rheumatoid Factoron 08-12-20 21 Rheumatoid Factor <10.0 0.0-13.9 [facility] [email or web address] Other Cardiovascular Lab Reporton 04-20-2018 Cardiovascular Lab Report [facility] Patient Name: Mark [facility] MR #: [id number] Physician: Lavell James,Department of M.D.Medicine Service Date: 04/20/2018Division of Birthdate: 1995Cardiology Room #: CCAdult [facility]ovascularServicesUn[address] [address]Fflyq Fax Cardiovascular Laboratory ReportFINAL IMPRESSIONS:1. Evidence of significant oxygenation step-up in the right atrial level consistent with ventricular septal defect.2. Qp/Qs of 0.96.3. Normal right-sided heart pressures.4. Normal pulmonary capillary wedge pressure.5. Normal cardiac output/cardiac index.RECOMMENDATIONS:1. Given the patient's Qp/Qs, her normal right-sided pressures and absence of significant symptoms, continued observation and echocardiographic monitoring of her ventricular septal defect is sufficient.2. We will repeat echocardiograms every 1-2 years or sooner should symptoms arrive.3. Follow up with me in the [facility] in 6 months or so.4. Follow up with Dr. Vaughan as scheduled.PROCEDURES: Right heart catheterization, comprehensive oximetry run,calculation of a Qp/Qs.METHODS: After risks, benefits, and alternatives were explained, writteninformed consent was obtained. The patient was prepped and draped in usualsterile fashion over the right groin. Using 1% lidocaine solution, localinfiltration anesthesia was achieved. Using modified Seldinger technique,access of the right common femoral vein was obtained. A 6-Georgian 11 cmsheath was inserted without difficulty. A Forte catheter was used forright heart catheterization measuring pressures in the pulmonary capillarywedge, pulmonary artery, right ventricle, and right atrial positions.Comprehensive oximetry run was performed with oxygen saturations measuredat multiple points in the pulmonary arteries, right ventricle, rightatrium, superior vena cava, and inferior vena cava. A Qp/Qs wascalculated.After reviewing the data, it was elected to conclude the procedure. TheBerman catheter was removed. The femoral sheath was to be removed withapplication of manual pressure to achieve optimal hemostasis. Overall, thepatient tolerated the procedure well. There were no overt complications.She was to be transferred to the holding area in stable condition.FINDINGS: Hemodynamics:RA 10.RV 23/5, 9.PA 23/10 (15).PCWP 10.PPG5.AO 114/74.Cardiac output 5.01/cardiac index 3.15.Oxygen saturations:Wedge 96%.Right PA 73%.Left PA 74%.Mean PA 75%.Right ventricular apex 73%.Low right ventricle 73%.Superior vena cava 67%.Inferior vena cava 76%.Right atrium 74%.AO 100%.QP/Qs 0.96.INDICATIONS: Ms. Flores is a 22-year-old with a known history ofventricular septal defect. Recent echocardiography revealed increasedgradients across the ventricular septal defect and Qp/Qs suggested to be1.7. She complained of paroxysmal nocturnal dyspnea. A hemodynamics studyand saturation run was indicated. Findings and management strategies areoutlined above.Electronically Signed by:Lavell James M.D. 04/22/2018 02:22 P Lavell James M.D.Date Dict: 04/20/2018/10:39 Elisa/Lavell James M.D.Date Trans: 04/20/2018 01:06 P/Mayte_[id number]: Geoff Vaughan M.D. [address] [place] [id number] Andrew Cuadra, BULL DRIVER [address] [place] [address] Normal [facility] Vital Signs Date Time Vital Sign Value Performing Clinician Facility 10-17-2024 11:55-0500 Body mass index (BMI) [Ratio] 27.87 kg/m2 Sekou Peggy DO Work Phone: [facility] 10-17-2024 11:55-0500 Body weight 69.13 kg Sekou Peggy DO Work Phone: [facility] 10-17-2024 11:55-0500 Diastolic blood pressure 68 mm[Hg] Sekou Peggy DO Work Phone: [facility] 10-17-2024 11:55-0500 Systolic blood pressure 102 mm[Hg] Sekou Peggy DO Work Phone: [facility] 06-22-2023 09:00-0400 Body height 157.48 cm Brittani Costello Other [facility] Other 06-22-2023 09:00-0400 Body mass index (BMI) [Ratio] 25.55 kg/m2 Brittani Costello Other [facility] Other 06-22-2023 09:00-0400 Body weight 63.37 kg Brittani Costello Other [facility] Other 06-22-2023 09:00-0400 Diastolic blood pressure 60 mm[Hg] Brittani Costello Other [facility] Other 06-22-2023 09:00-0400 Respiratory rate 18 /min Brittani Costello Other [facility] Other 06-22-2023 09:00-0400 SaO2% (BldA) [Mass fraction] 98 % Brittani Costello Other [facility] Other 06-22-2023 09:00-0400 Systolic blood pressure 100 mm[Hg] Brittani Costello Other [facility] Other 06-16-2022 10:30-0400 Body height 157.48 cm Brittani Costello Other [facility] Other 06-16-2022 10:30-0400 Body mass index (BMI) [Ratio] 25.2 kg/m2 Brittani Costello Other [facility] Other 06-16-2022 10:30-0400 Body temperature 97.3 [degF] Britatni Costello Other [facility] Other 06-16-2022 10:30-0400 Body weight 62.51 kg Brittani Costello Other [facility] Other 06-16-2022 10:30-0400 Diastolic blood pressure 70 mm[Hg] Brittani Costello Other [facility] Other 06-16-2022 10:30-0400 Respiratory rate 18 /min Brittani Costello Other [facility] Other 06-16-2022 10:30-0400 SaO2% (BldA) [Mass fraction] 98 % Brittani Costello Other [facility] Other 06-16-2022 10:30-0400 Systolic blood pressure 120 mm[Hg] Brittani Costello Other [facility] Other 09-04-2021 14:15-0500 Body height 157.48 cm Brittani Costello Other [facility] Other 09-04-2021 14:15-0500 Body mass index (BMI) [Ratio] 24.18 kg/m2 Brittani Trang Other [facility] Other 09-04-2021 14:15-0500 Body temperature 97.8 [degF] Brittani Costello Other [facility] Other 09-04-2021 14:15-0500 Body weight 59.97 kg Brittani Trang Other [facility] Other 09-04-2021 14:15-0500 Diastolic blood pressure 80 mm[Hg] Brittani Costello Other [facility] Other 09-04-2021 14:15-0500 Respiratory rate 18 /min Brittani Trang Other [facility] Other 09-04-2021 14:15-0500 SaO2% (BldA) [Mass fraction] 99 % Brittanifelicia Costello Other [facility] Other 09-04-2021 14:15-0500 Systolic blood pressure 120 mm[Hg] Brittani Costello Other [facility] Other 08-12-2021 08:30-0400 Body height 157.48 cm Brittani Costello Other [facility] Other 08-12-2021 08:30-0400 Body mass index (BMI) [Ratio] 24.32 kg/m2 Brittani Costello Other [facility] Other 08-12-2021 08:30-0400 Body temperature 97.1 [degF] Brittani Trang Other [facility] Other 08-12-2021 08:30-0400 Body weight 60.33 kg Brittani Trang Other [facility] Other 08-12-2021 08:30-0400 Diastolic blood pressure 80 mm[Hg] Brittani Costello Other [facility] Other 08-12-2021 08:30-0400 Respiratory rate 18 /min Brittanifelicia Costello Other [facility] Other 08-12-2021 08:30-0400 SaO2% (BldA) [Mass fraction] 99 % Brittanifelicia Costello Other [facility] Other 08-12-2021 08:30-0400 Systolic blood pressure 120 mm[Hg] Brittani Trang Other [facility] Other Encounters Encounter Date Encounter Type Care Provider Facility Start: 10-17-2024 End: 10-17-2024 Bamboo flowsheet Sekou Peggy DO Work Phone: [facility] Start: 10-17-2024 End: 10-17-2024 Bamboo flowsheet Sekou Peggy DO Work Phone: [facility] Start: 10-17-2024 End: 10-17-2024 Patient encounter procedure Sekou Peggy DO Work Phone: [facility] Work Phone: Start: 10-17-2024 End: 10-17-2024 Periodic preventive med est patient 18-39 yrs Sekou Peggy DO Work Phone: [facility] Comment on above: Well woman exam with routine gynecological exam; Consultation for sterilization Start: 10-06-2024 End: 10-06-[address] [facility] Start: 07-11-2024 End: 07-11-2024 ambulatory [facility] Start: 07-08-2024 End: 07-08-2024 ambulatory [facility] Start: 05-23-2024 End: 05-23-2024 ambulatory MELVI BRUNNER MD [facility] Start: 04-27-2024 End: 04-27-[address] [facility] Start: 03-22-2024 End: 03-22-2024 ambulatory [facility] Start: 02-12-2024 Encounter for genera l adult medical examination without abnormal findings [place] [facility] Start: 02-12-2024 ambulatory EL VILLAR MD [facility] Start: 02-12-2024 ambulatory EL VILLAR MD [facility] Start: 02-12-2024 Encounter for genera l adult medical examination without abnormal findings EL VILLAR MD [facility] Start: 06-23-2023 End: 06-23-2023 ambulatory Brittani Costello Other [facility] Other Start: 06-23-2023 Telephone encounter [facility] Start: 06-22-2023 Encounter for genera l adult medical examination without abnormal findings Brittani Costello [facility] [place] Start: 06-22-2023 Periodic preventive med est patient 18-39 yrs Brittani Costello [facility] [place] Start: 06-22-2023 End: 06-22-2023 ambulatory Brittani Costello [facility] Other Start: 01-07-2023 End: 01-08-2023 ambulatory BRITTANI COSTELLO Facility: Start: 12-06-2022 End: 12-06-2022 ambulatory Brittani Costello Facility:[facility] Start: 12-06-2022 End: 12-06-2022 ambulatory DNP Brittani Costello Work Phone: [facility] Work Phone: Start: 12-06-2022 End: 12-06-2022 Patient encounter procedure DNP Brittani Costello Work Phone: [facility] Work Phone: Start: 10-20-2022 End: 10-20-2022 ambulatory Brittanifelicia Vieiraamerico Other [facility] Other Start: 10-20-2022 Telephone encounter Brittani Trang [facility] Start: 06-24-2022 End: 06-24-2022 ambulatory Brittani Trang Other [facility] Other Start: 06-24-2022 Telephone encounter Brittani Trang [facility] Start: 06-19-2022 End: 06-19-2022 ambulatory Brittani Trang Other [facility] Other Start: 06-19-2022 Telephone encounter Brittani Vieiraamerico [facility] Start: 2022 End: 2022 ambulatory Brittani Trang Other [facility] Other Start: 2022 Telephone encounter Brittani Vieiraamerico [facility] Start: 06-16-2022 End: 06-16-[address] SEKOU WOODS . [facility] Other Start: 06-16-2022 Encounter for genera l adult medical examination without abnormal findings Brittani Costello [facility] [place] Start: 06-16-2022 Periodic preventive med est patient 18-39 yrs Brittani oCstello [facility] Start: 06-16-2022 End: 06-16-2022 Patient encounter procedure DNP Brittani Costello Work Phone: [facility] Start: 06-01-[address] DOCTOR AYERS Facility :[facility] Start: 12-16-2021 End: 12-16-2021 ambulatory Brittani Trang Other [facility] Other Start: 12-16-2021 Telephone encounter Brittani Costello [facility] Start: 12-02-2021 End: 12-02-2021 ambulatory Brittani [facility] Other [facility] Other Start: 12-02-2021 Telephone encounter Brittani Trang [facility] [place] Start: 11-26-2021 End: 11-26-2021 ambulatory Brittani Trang Other [facility] Other Start: 11-26-2021 Telephone encounter Brittani Trang [facility] Start: 11-25-2021 End: 11-25-2021 ambulatory Brittani [facility] Other [facility] Other Start: 11-25-2021 Telephone encounter Brittani Trang [facility] [place] Start: 09-04-2021 End: 09-04-2021 ambulatory Brittani Trang Other [facility] Other Start: 09-04-2021 Office outpatient vi sit 15 minutes Brittani Costello [facility] [place] Start: 09-03-2021 End: 09-03-2021 ambulatory Brittani Trang Other [facility] Other Start: 09-03-2021 Telephone encounter Brittani Trang [facility] [place] Start: 08-13-2021 Telephone encounter Brittani Costello [facility] [place] Start: 08-12-2021 (Jorge) [place] Adult Brittani Costello [facility] [place] Start: 08-12-2021 Encounter for genera l adult medical examination without abnormal findings Brittani ENC[facility] [place] Start: 04-20-2018 End: 04-21-2018 Ambulatory EHAB A [place] Facility:[facility] Start: 03-23-2018 End: 03-24-2018 Ambulatory DEFAULT PHYSICIAN Facility:[facility] Procedures Date Procedure Procedure Detail Performing Clinician Start: 06-16-2022 X-ray of right foot DNP Brittani Costello Work Phone: Plan of Treatment Date Care Activity Detail Author Start: 10-17-2024 End: 10-17-2024 Patient encounter procedure 10/17/2024 11:20 AM EST Office Visit [facility] [address] [place] [address] Sekou Woods, [address] [place] [address] Arrived [facility] Comment on above: Arrived Start: 06-26-2024 Influenza vaccination Influenza Vacc ine (#1) [facility] Cytology Cervical or vaginal smear or scraping study Pap Smear Pathology and Cytology Routine Well woman exam with routine gynecological exam Ordered: 10/17/2024 [facility] Work Phone: Comment on above: Ordered: 10/17/2024 Immunizations Immunization Date Immunization Notes Care Provider Rut ortiz 07-29-2021 influenza, seasonal, injectable Brittani Costello Other [facility] Other 11-20-2020 COVID-19 mRNA-1273 (Moderna) DNP Brittani Trang Work Phone: [facility] 10-24-2020 COVID-19 mRNA-1273 (Moderna) DNP Brittani Costello Work Phone: [facility] 07-27-2020 influenza, seasonal, injectable Brittani Costello Other [facility] Other 08-16-2008 influenza virus vaccine, unspecified formulation Sekou Woods DO Work Phone: [facility] Payers Date Payer Category Payer [facility] [id number] 2006 Private Health Insurance [id number] 1996 Unknown [id number]. 593 1996 Unknown [id number] [id number]. 593 1996 Unknown [id number] 2.16840.1.168181.3.579.2. 593 1996 Unknown [id number] 2.16840.1.545563.3.579.2. 1287 1996 Unknown [id number] 2.16840.1.493895.3.579.2. 128 1996 Unknown [id number] 2.16.840.1.517833.3.579.2. 128 1996 Unknown [id number] 2.16.840.1.021029.3.579.2. 1286 1996 Unknown [id number] 2.16.840.1.179689.3.579.2. 1287 1996 Unknown [id number] 2.16.840.1.406855.3.579.2. 1287 1996 Unknown [id number] 2.16840.1.363948.3.579.2. 1287 1996 Unknown [id number] 2.16.840.1.675119.3.579.2. 1287 1959 [facility] [id number] [id number] 1959 Self-pay [id number] Medicaid [place] [employer] [id number] Unknown Unknown [id number] [id number] Unknown [id number] 2.840.1.902223.3.579.2. 531 Unknown [id number] [id number]. 531 Social History Date Type Detail Facility Start: 06-22-2023 Sex Assigned At N [facility] Other Start: 1995 Sex Assigned At Female F [facility] Start: 06-15-[address] [facility] Never smoked tobacco [facility] Start: 06-15-2023 Tobacco use and exposure Smokeless tobacco non-user [facility] Start: 06-22-2023 Alcoholic beverage intake Current drinker of alcohol (finding) [facility] Start: 06-22-2023 History of Social function [facility] Start: 06-15-2023 Alcohol Comment 6 or more drin ks /monthly ; 3 or 4 drinks on a typical day [facility] Start: 1996 Sex assigned at Not on file N [facility] Clinical Notes 08-12-2021 to 10-17-2024 Cheri Hand LPN - 10/17/2024 11:20 AM EST Note Date & Type Note Facility 10-17-2024 History of Present illness Narrative Reason for Appointment: Patient ID: Joe Flores is a 29 y.o. female who presents for Well Women Visit Patient presents today for Annual Exam. MEDICATIONS Current Outpatient Medications Medication Instructions Sprintec 28 0.25-35 MG-MCG tablet 1 tablet, Oral, Daily ALLERGIES Allergies Allergen Reactions Azithromycin Other and Unknown PROBLEMS Active Ambulatory Problems Diagnosis Date Noted No Active Ambulatory Problems Resolved Ambulatory Problems Diagnosis Date Noted No Resolved Ambulatory Problems Past Medical History: Diagnosis Date Allergic rhinitis Asthma ([facility]) BMI 25.0-25.9,adult Bronchial asthma ([facility]) Chronic sinusitis 2012 Epistaxis History of being hospitalized 09/18/2019 History of echocardiogram 07/05/2020 Pes anserinus tendinitis and bursitis Sprain and strain of wrist Systolic murmur Ventricular septal defect ([facility] Well woman exam HISTORY PAST MEDICAL HISTORY SOCIAL HISTORY Past Medical History: Diagnosis Date Allergic rhinitis Asthma ([facility]) unspecified, unspecified status BMI 25.0-25.9,adult Bronchial asthma ([facility]) Chronic sinusitis 2012 Epistaxis History of being hospitalized 09/18/2019 Mononuclosis, Dehydration, Strep Throat History of echocardiogram 07/05/2020 EF 65%, small perimembranous ventricular septal defect measuring 0.34.cm RV, [place] normal, No [facility] Pes anserinus tendinitis and bursitis Pes anserinus tendinitis or bursitis Sprain and strain of wrist Systolic murmur Grade 3/6 at [facility] not radiating harsh holosystolic- Specialist, Dr Garvey [facility] Ventricular septal defect ([facility]) Well woman exam Social History Tobacco Use Smoking status: Never Smokeless tobacco: Never Substance Use Topics Alcohol use: Yes Comment: 6 or more drinks /monthly ; 3 or 4 drinks on a typical day Drug use: Not on file FAMILY HISTORY Family History Problem Relation Name Age of Onset Heart disease Mother Mental illness Mother Arthritis Mother Hypertension Mother No Known Problems Sister Cancer Maternal Grandmother Hypertension Maternal Grandfather Heart disease Maternal Grandfather Cancer Maternal Grandfather Hypertension Paternal Grandmother Heart disease Paternal Grandmother Cancer Paternal Grandmother Stroke Paternal Grandmother Cancer Paternal Grandfather Hypertension Mother's Brother Heart disease Mother's Brother Diabetes Mother's Brother SURGICAL HISTORY Past Surgical History: Procedure Laterality Date CLOSED REDUCTION DISTAL RADIUS FRACTURE 2011 ECHO 2011 Ventricular septal defect FINGER SURGERY 2012 pinning and close reduction percutaneous pinning carpometacarpal joint right thumb MAXILLARY ANTROSTOMY Bilateral removal [place] bullosa, septoplasty NM CLOSED TREATMENT ULNAR STYLOID FRACTURE 2011 fracture ulnar styloid NM MEDICATION MANAGEMENT 2014 Flonase, Singulair, Astepro; Disease:Allergic rhinitis, Bronchial Asthma REVIEW OF SYSTEMS Review of Systems: Review of Systems Constitutional: Negative. HENT: Negative. Eyes: Negative. Respiratory: Negative. Cardiovascular: Negative. Gastrointestinal: Negative. Genitourinary: Negative. Musculoskeletal: Negative. Skin: Negative. Neurological: Negative. All other systems reviewed and are negative. Hematological: Negative. Endocrine: Negative. Allergic/Immunologic: Negative. OBJECTIVE Objective: Physical Exam Constitutional: Appearance: Normal appearance. She is well-developed. Genitourinary: Vulva normal. Right Adnexa: not tender and no mass present. Left Adnexa: not tender and no mass present. No cervical discharge. Breasts: Breasts are soft. Right: Normal. Left: Normal. HENT: Head: Normocephalic. Nose: Nose normal. Mouth/Throat: Mouth: Mucous membranes are moist. Cardiovascular: Rate and Rhythm: Normal rate and regular rhythm. Pulmonary: Effort: Pulmonary effort is normal. Breath sounds: Normal breath sounds. Abdominal: General: Bowel sounds are normal. There is no distension. Palpations: Abdomen is soft. Tenderness: There is no abdominal tenderness. There is no guarding or rebound. Musculoskeletal: General: No swelling. Normal range of motion. Cervical back: Normal range of motion. Right lower leg: No edema. Left lower leg: No edema. Neurological: General: No focal deficit present. Mental Status: She is alert and oriented to person, place, and time. Skin: General: Skin is warm and dry. Psychiatric: Mood and Affect: Mood normal. Behavior: Behavior normal. Vitals and nursing note reviewed. Exam conducted with a rotor balancer present. Vitals: Estimated body mass index is 25.42 kg/m as calculated from the following: Height as of 06/22/23: 5' 2 . Weight as of 06/22/23: 139 lb. BP: No LMP recorded. ASSESSMENT & PLAN ICD-10-CM 1. Well woman exam with routine gynecological exam Z01.419 Annual Exam: Patient presents today for an annual exam. Patient states she is doing well and has no complaints. Pap was obtained without difficulty. Follow Up: Patient is to return in one year for annual unless needed otherwise. Documented by jaida castillo on behalf of: Sekou Woods DO documented in this encounter [facility] 03-22-2024 Note [facility] Cardiology Clinic Note Date of phone call: 03/22/2024 No chief complaint on file. HPI Total time spent in Medical Discussion including obtaining history from the patient, review of labs, tests with the patient, discussion of assessment and plan: 15 minutes. Office Patient Home The visit was initiated by the patient and conducted [id number] with use of audio-only real time telephone communication between patient and provider for a virtual visit. Verbal consent to provide and bill for this service was obtained on 03/22/2024. There are no diagnoses linked to this encounter. By using the attestations below, the signing clinician agrees that I have read and verify that the documentation has been personally reviewed by me and ensure that the documentation accurately reflects the encounter. GC: I personally saw this patient on the day of the encounter, performed the dyer portion(s) of the service and participated in the management and confirm the resident's documentation. Please note there may be an additional personal documentation from me. Chief Complaint: SWELLING IN FOOT CRP 8.5, SWELLING ALL OVER. PCP THINKS IT IS CARDIAC BILATERAL SWELLING FEET AND LEG, CAN NOT GET SHOES ON. NO SOB. NO CHEST PAIN . NO PALPITATIONS. HPI: Joe Flores is a 28 y.o. female Joe has been having issues with bilateral leg swelling for many years. Initially it was thought to be related to a form of arthritis. She was diagnosed with cellulitis at 1 point. During the course of investigations, a CRP was found to be significantly elevated. This is improved but is still elevated. She denies recent fevers or chills. She has had no chest pain. She has had no shortness of breath. She denies orthopnea or paroxysmal external dyspnea. She has had no significant weight gain. She has no blood in the urine or stools. Recent Urinalysis shows a possible urinary tract infection. She has not seen a swimming pool service technician. Cardiology ROS: ROS Past Medical History She has no past medical history on file. Surgical History She has no past surgical history on file. Social History She has no history on file for tobacco use, alcohol use, and drug use. Family History No family history on file. Allergies Patient has no allergy information on record. Medications No current outpatient medications on file. Last Recorded Vitals Wt 68 kg (150 lb) BMI 27.44 kg/m??? Physical Examination: GENERAL: alert and oriented x3, well developed, in no acute distress. HEAD: atraumatic, normocephalic. EYES: KATT, EOMI. NECK: trachea midline, no JVD present, no carotid bruits present. CARDIAC: S1, S2 present. RRR. No murmur, rubs, or gallops. RESPIRATORY: CTAB, no increased effort of breathing, no rales, rhonchi, or wheezing. ABDOMEN: soft, nontender, nondistended. EXTREMITIES: no lower extremity edema, peripheral pulses are 2+ bilaterally. No rash/skin discoloration present. NEURO: strength/sensation equal and symmetric in bilateral upper and lower extremities. PSYCH: appropriate mood, affect, and judgement. INVESTIGATIONS: Echo 03/2019 Nml EF, nml chamber size, small membranous VSD with left to right shunt Assessment: 1. Ventricular septal defect - Established (stable) - small membranous Q21.0: Ventricular septal defect ECHOCARDIOGRAM WITH DOPPLER AND COLOR FLOW, TRANSTHORACIC COMPLETE - Note to Imaging Facility: QP QS SHUNT FRACTION COMPLETE FOR VSD 2. Asthma - Established (stable) J45.909: Unspecified asthma, uncomplicated CONTROLLING YOUR ASTHMA: CARE INSTRUCTIONS LEARNING ABOUT ASTHMA Plan: I recommended repeating an echocardiogram to evaluate her VSD, right-sided filling pressures, ejection fraction and wall motion and other structural parameters If this is normal, I would not think that her lower extremity edema should be related to the heart. Differential diagnosis for swelling could be local causes such as arthritis, venous disease, cellulitis, versus systemic issues; recent labs would rule out renal or hepatic disorders. I would strongly recommend referral to a swimming pool service technician given her elevated CRP and unexplained edema . RTC in a year if echo unchanged Lavell James MD, MPH, [facility], [facility], [facility] Interventional Cardiology Pager Email: [email or web address] 06-22-2023 Evaluation note Encounter Date Diagnosis Assessment Notes May, Well adult exam (ICD-10 - Z00.00) Doing well. Routine lab work ordered. Continue to follow with DICTATING TRANSCRIBING MACHINE SERVICER, eye doctor, dentist, and cardiology. Patient is advised to work on healthy diet choices and appropriate servings, weight control, regular exercise as directed, reduced fat intake, and salt avoidance. Patient voiced understanding of this and agrees to this plan. May, Moderate persistent asthma without complication (ICD-10 - J45.40) Very stable and well controlled. Taking Singulair 10 mg daily, Loratadine, Ventolin PRN, Breo daily. Will continue current treatment plan at this time. May, Ventricular septal defect (ICD-10 - Q21.0) Present since . Stable. Continue to follow with cardiology. Specialty notes reviewed when received. May, Elevated C-reactive protein (CRP) (ICD-10 - R79.82) Has had an elevation in this in the past. Will recheck her levels since changing her diet and increasing physical activity. [facility] Other 12-26-2022 Evaluation note* Encounter Date Diagnosis Assessment Notes Treatment Notes Treatment Clinical Notes Sep, Elevated C-reactive protein (CRP) (ICD-10 - R79.82) [facility] Other 08-30-2022 Evaluation note* Encounter Date Diagnosis Assessment Notes Treatment Notes Treatment Clinical Notes May, Injury of right foot, initial encounter (ICD-10 - S99.921A) [facility] Other 08-22-2022 Evaluation note* Encounter Date Diagnosis Assessment Notes Treatment Notes Treatment Clinical Notes May, Well adult exam (ICD-10 - Z00.00) Doing well. Routine lab work ordered. Continue to follow with DICTATING TRANSCRIBING MACHINE SERVICER, eye doctor, dentist, and cardiology. Patient is advised to work on healthy diet choices and appropriate servings, weight control, regular exercise as directed, reduced fat intake, and salt avoidance. Patient voiced understanding of this and agrees to this plan. May, Moderate persistent asthma without complication (ICD-10 - J45.40) Very stable and well controlled. Taking Singulair 10 mg daily, Loratadine, Ventolin PRN, Breo daily. Will continue current treatment plan at this time. May, Ventricular septal defect (ICD-10 - Q21.0) Present since . Stable. Continue to follow with cardiology. Specialty notes reviewed when received. May, Elevated C-reactive protein (CRP) (ICD-10 - R79.82) Has had an elevation in this in the past. Will recheck her levels since changing her diet and increasing physical activity. May, Injury of right foot, initial encounter (ICD-10 - S99.921A) Suffered a right foot injury 1 month ago after dropping something on it. Continues to have significant right foot pain to the top of her foot and this is present on exam today with mild swelling. Will obtain xray to rule out abnormality. [facility] Other 02-21-2022 Evaluation note* Encounter Date Diagnosis Assessment Notes Treatment Notes Treatment Clinical Notes Nov, Elevated C-reactive protein (CRP) (ICD-10 - R79.82) [facility] Other 02-07-2022 Evaluation note* Encounter Date Diagnosis Assessment Notes Treatment Notes Treatment Clinical Notes Nov, Moderate persistent asthma without complication (ICD-10 - J45.40) [facility] Other 02-01-2022 Evaluation note* Encounter Date Diagnosis Assessment Notes Treatment Notes Treatment Clinical Notes Nov, Moderate persistent asthma without complication (ICD-10 - J45.40) [facility] Other 01-31-2022 Evaluation note* Encounter Date Diagnosis Assessment Notes Treatment Notes Treatment Clinical Notes Oct, Moderate persistent asthma without complication (ICD-10 - J45.40) [facility] Other 11-10-2021 Evaluation note* Encounter Date Diagnosis Assessment Notes Treatment Notes Treatment Clinical Notes Aug, Bug bite, initial encounter (ICD-10 - W57.XXXA) She appears to have bug bites to various areas on her body without s/s of infection. Her boyfriend came down with the same bites so likely bugs that are biting her. Not a typical presentation for scabies as it is not to the webbings of her fingers, but will go ahead and treat her for scabies as well. Medication profile and possible SE reviewed with patient. Take as prescribed. Keep off work the next 2 days. She is to go home and wash all laundry and bedding. Call an commercial sales director if needed. Notify the office should she need anything further. Aug, Rash and nonspecific skin eruption (ICD-10 - R21) see above treatment plan. [facility] Other 10-18-2021 Evaluation note* Encounter Date Diagnosis Assessment Notes Treatment Notes Treatment Clinical Notes Jul, Well adult exam (ICD-10 - Z00.00) Doing well. Pillars reviewed with her. She did pass all of these. Continue to follow with DICTATING TRANSCRIBING MACHINE SERVICER, eye doctor, dentist, and cardiology. Patient is advised to work on healthy diet choices and appropriate servings, weight control, regular exercise as directed, reduced fat intake, and salt avoidance. Patient voiced understanding of this and agrees to this plan. Jul, Moderate persistent asthma without complication (ICD-10 - J45.40) Very stable and well controlled. Taking Singulair 10 mg daily, Ventolin PRN, Breo daily. Refills sent. Will continue current treatment plan at this time. Jul, Ventricular septal defect (ICD-10 - Q21.0) Present since . Stable. Continue to follow with cardiology. Specialty notes reviewed when received. Jul, Swelling of right foot (ICD-10 - M79.89) She does have some right foot swelling and MRI was done by ortho which showed plantar fasciitis. Did go to [facility] due to VSD and everything is normal with that. No other symptoms than the swelling that comes and goes. Has been going on for a few months. Does not have any swelling today. Significant testing has been done. Will order autoimmune studies to rule out abnormalities. Further treatment pending lab results. [facility] Other Evaluation noteNo InformationNort [facility] Other Evaluation noteNo assessment information available [facility] Work Phone: Evaluation note* Diagnosis Well woman exam with routine gynecological exam Routine gynecological examination Consultation for sterilization Other general counseling and advice for contraceptive management documented in this encounter [facility] N[facility]ative - Reported* Type Description Date Medical History asthma Medical History ventricular septal defect Surgical History sinus surgery Surgical History oral surgery Surgical History wrist surgery Surgical History heart catheterization Hospitalization History asthma as a child Hospitalization History mono and strep 08/2019 [facility] Other Summary Purpose Family History No Family History Records FoundNo Family History Records FoundNo Family History Records FoundNo Family History Records FoundNo Family History Records FoundNo Family History Records FoundNo Family History Records Found Advance Directives Advance Directive Response Recorded Date/ Time Advance Directives No August 12, 2021 5:27pm Advance Directive Response Recorded Date/ Time Advance Directives No August 12, 2021 4:27pm Chief Complaint and Reason for Visit Chief Complaint S99.921A Z00.00 R79.82 Chief Complaint r79.82 Reason for Referral Reason Refer to Dr Thomas Montoya mming [address] fax [phone] for right foot injury Diagnosis 1 Injury of right foot , initial encounter (S99928C) Referral Organization [facility] Referring Provider First Name Brittani Referring Provider Last Name Trang Referring Provider Specialty Nurse Pract itioner Referred Provider Specialty Podiatry - S urgical Chiropody Referral Priority Routine Additional Source Comments INFORMATION SOURCE (unrecogn ized section and content) DATE CREATED AUTHOR 04/23/2018 [facility] DATE CREATED AUTHOR AUTHOR'S ORGANIZ ATION 01/14/2023 [facility] DATE CREATED AUTHOR AUTHOR'S ORGANIZ ATION 06/23/2023 [facility] DATE CREATED AUTHOR AUTHOR'S ORGANIZ ATION 03/23/2024 [facility] DATE CREATED AUTHOR AUTHOR'S ORGANIZ ATION 05/24/2024 [facility] DATE CREATED AUTHOR AUTHOR'S ORGANIZ ATION 07/15/2024 [facility] DATE CREATED AUTHOR AUTHOR'S ORGANIZ ATION 10/09/2024 [facility] REASON FOR VISIT (unrecogniz ed section and content) Reason Comments Well Women Visit Care Teams (unrecognized sec tion and content) Team Status: Inactive Member Role Status Dates Brittani Costello DNP Primary Care Provider, Attending Provider Active Team Status: Active Member Role Status Dates Brittani Costello DNP Primary Care Provider Active As400 Operator Relationship Specialty Start Date End Date Allie Walker MD [address] [place] [id number] PCP - General Family Medicine 03/03/23 As400 Operator Relationship Specialty Start Date End Date Allie Walker MD [address] [place] [address] PCP - General Family Medicine 03/03/23 Goals (unrecognized section and content) Goals may be documented in a n alternate section FOR RECORDS PERTAINING TO PATIENTS WHO ARE OR HAVE BEEN ENROLLED IN A CHEMICAL DEPENDENCY/SUBSTANCEABUSE PROGRAM, SOME INFORMATION MAY BE OMITTED. This clinical summary was aggregated from multiple sources. Caution should be exercised in using it in the provision of clinical care. This summary normalizes information from multiple sources, and as a consequence, information in this document may materially change the coding, format and clinical context of patient data. In addition, data may be omitted in some cases. CLINICAL DECISIONS SHOULD BE BASED ON THE PRIMARY CLINICAL RECORDS. [facility]. provides no warranty or guarantee of the accuracy or completeness of information in this document.
[2024-10-25 13:08] LABS: Age Gdln ACOG Testing Note (.); IGP, rfx Aptima HPV ASCU Note (.)
== END 2024-10-17 21:16 | disposition home or self-care (01) ==
LOC: LAB 21:15
PROVIDERS: Visit Provider Obstetrics & Gynecology
DX: Z01.419 Encounter for gynecological examination (general) (routine) without abnormal findings (principal)
CPT/HCPCS: 88175